=== PATIENT | female | born 1980 | race Caucasian/White ===

== ENCOUNTER 2017-11-16 20:08 | Inpatient (IN) | payer OTHER ==
[2017-11-16 20:31] VITALS: BMI 18.8
[2017-11-16] MEDS ORDERED: ONDANSETRON 4 MG/2 ML VIAL IVPUSH ONE (20:38)
[2017-11-16] MEDS ORDERED: SODIUM CHLORIDE 1,000 ML IV ONE (20:38)
--- NOTE | 2017-11-16 20:43 | PDOC ---
History of Present Illness - General Chief Complaint: Nausea/Vomiting Stated Complaint: NAUSEA Time Seen by Provider: 11/16/17 20:25 History Source: Patient Exam Limitations: No Limitations - History of Present Illness Travel History: No Initial Comments: 11/16/17 20:39 37y F no pmhx presents with complaint of abdominal pain. pt notes she was well until yesterday when she started to have episodes of vomting and intermittent abdominal pain. Pt notes her vomiting is clear/yellow, pain was originally releived with vomiting, but vomiting hasnt subsided and pt unable to tolerate any oral intake. she nots she has not had a BM in to days and hasnt passed any gas. no history of similar sypmtms in the past. no fever/chills, diarrhea, dysuria, nor history of abd surgery. pt had an IUD place a few months ago. LMP about 1 month ago. PMD in the ada Past History - Past Medical History Allergies/Adverse Reactions: Allergies Allergy/AdvReac Type Severity Reaction Status Date / Time No Known Allergies Allergy Verified 11/16/17 21:41 Home Medications: Ambulatory Orders NK [No Known Home Medication] 11/16/17 - Suicide/Smoking/Psychosocial Hx Smoking History: Never smoked Have you smoked in the past 12 months: No Information on smoking cessation initiated: No Hx Alcohol Use: No Drug/Substance Use Hx: No Review of Systems - Review of Systems Able to Perform ROS?: Yes Comments:: 11/16/17 20:41 Constitutional - no reported Fever, Chills, HEENT: no reported vision changes, sore throat Respiratory: no reported cough, sob, hemoptysis Cardiac: no reported chest pain, palpitations, light headedness, leg swelling Abd/GI: + abd pain, nausea, vomiting, obstipation no reported blood per rectum , melena, diarrhea : no reported dysuria, frequency, discharge Musculskelatal - no reported back pain, joint swelling skin - no reported bruising, erythema, rash neurological: no reported headache, numbness, focal weakness, tingling, ataxia, hematologic: no reported easy bruising, easy bleeding *Physical Exam - Vital Signs Last Vital Signs Temp Pulse Resp BP Pulse Ox 97.8 F 81 16 130/86 99 11/16/17 20:15 11/16/17 20:15 11/16/17 20:15 11/16/17 20:15 11/16/17 20:15 - Physical Exam Comments: 11/16/17 20:42 GENERAL: The patient is awake, alert, and fully oriented, Nontoxic - in no acute distress. HEAD: Normocephalic, atraumatic. EYES: extraocular movements intact, sclera anicteric, conjunctiva clear. ENT: Normal voice, Moist mucous membranes. NECK: Normal range of motion, supple LUNGS: Breath sounds equal, clear to auscultation bilaterally. No wheezes, no rhonchi, no rales. HEART: Regular rate and rhythm, normal S1 and S2 without murmur, rub or gallop. ABDOMEN: Soft, slightly distended, hyperactive bowel sounds in all 4 quadrants, moderately diffuse tenderness, no cva tendreness, no rebound/guarding EXTREMITIES: Normal range of motion, no edema. No clubbing or cyanosis. No cords, erythema, or tenderness. NEUROLOGICAL: No facial assymetry, Normal speech, PSYCH: Normal mood, normal affect. SKIN: Warm, Dry, normal turgor, ED Treatment Course - LABORATORY CBC & Chemistry Diagram: 11/16/17 22:15 11/16/17 22:15 Medical Decision Making - Medical Decision Making 11/16/17 20:43 suspect gastritis/enteritis will obtain blood work, lipse will treat sypmtmoatically with fluids, zofran, pepcid will obtain flat and upright to r/o obstruction 11/16/17 23:46 pts abd cutter tender ntoed for leukocytosis and left shift will obtain CT abdomen 11/17/17 01:[address] of the abdomen noted for complex peritoneal fluid possibly bloody ascites, also consistent with a small bowel obstruction with a focal transition point in the small bowel in the mid epigastric region pt feels mild pain in her abdomen but denies any vomiting since arrival Consult placed to Dr. Rhodes, awaiting callback 11/17/17 02:11 11/17/17 02:45 case marjorie rhodes requests admission under hospitalists service, garry see the pt 11/17/17 02:51 case marjorie miller agree with admission in med surg under dr. knowles service stable for med surg Case discussed in detail with admitting physician including history, physical exam and ancillary studies. Admitting physician has assumed care for the patient, will follow all pending diagnostics and will complete the evaluation and treatment. dr. esparza coming into evaluate the pt now *DC/Admit/Observation/Transfer Diagnosis at time of Disposition: Small bowel obstruction Peritoneal fluid Qualifiers: Ascites type: other type Qualified Code(s): R18.8 - Other ascites - Discharge Dispostion Condition at time of disposition: Guarded Decision to Admit order: Yes - Referrals - Patient Instructions - Post Discharge Activity
[2017-11-16] MEDS ORDERED: ONDANSETRON 4 MG/2 ML VIAL ONE (21:54)
[2017-11-16] MEDS ORDERED: morphine CARPU-JECT 2 MG/1 ML DISP.SYRIN IVPUSH ONE (22:22)
[2017-11-16 22:27] LABS: BASO % 0.6 % (0-2.0); EOS % 0.7 % (0-4.5); HEMATOCRIT 38.6 % (32.4-45.2); HEMOGLOBIN 12.8 GM/dL (10.7-15.3); LYMPH % 6.6 % (8-40); MCH 27.6 pg (25.7-33.7); MCHC 33.1 g/dl (32.0-36.0); MEAN CELL VOLUME 83.5 fl (80-96); MEAN PLT VOLUME 8.5 fl (7.5-11.1); MONO % 3.3 % (3.8-10.2); NEUT % 88.8 % (42.8-82.8); PLATELET COUNT 381 K/MM3 (134-434); RBC 4.62 M/mm3 (3.60-5.2); RDW 15.5 % (11.6-15.6); WHITE BLOOD COUNT 15.6 K/mm3 (4.0-10.0)
[2017-11-16] MEDS ORDERED: MORPHINE SULFATE 2 MG/ML VIAL ONE (22:30)
[2017-11-16 22:42] LABS: URINE APPEARANCE CLEAR; URINE BILIRUBIN NEGATIVE (<2.0 mg/dL); URINE COLOR AMBER; URINE GLUCOSE (UA) NEGATIVE (NEGATIVE); URINE KETONE TRACE (NEGATIVE); URINE LEUK ESTERASE TRACE (NEGATIVE); URINE NITRITE NEGATIVE (NEGATIVE); URINE PROTEIN 2+ (NEGATIVE)
[2017-11-16 22:47] LABS: EPI CELLS RARE /HPF (FEW); URINE BACTERIA RARE /hpf (NONE SEEN); URINE MUCUS MANY
[2017-11-16 22:54] LABS: ANION GAP 7 (8-16); BILIRUBIN,TOTAL 0.6 mg/dL (0.2-1.0); BLOOD UREA NITROGEN 21 mg/dL (7-18); CALCIUM 8.8 mg/dL (8.5-10.1); CHLORIDE 101 mmol/L (98-107); CO2 25 mmol/L (21-32); CREATININE 0.9 mg/dL (0.55-1.02); GLUCOSE,RANDOM 103 mg/dL (74-106); LIPASE 66 U/L (73-393); POTASSIUM 4.6 mmol/L (3.5-5.1); SGOT/AST 13 U/L (15-37); SGPT/ALT 15 U/L (12-78); SODIUM 133 mmol/L (136-145); TOT PROT 10.3 g/dl (6.4-8.2)
[2017-11-16 22:55] LABS: ALK PHOS 71 U/L (45-117)
[2017-11-17] MEDS ORDERED: morphine CARPU-JECT 2 MG/1 ML DISP.SYRIN IVPUSH ONE ×2 (00:49→02:12)
[2017-11-17] MEDS ORDERED: MORPHINE SULFATE 2 MG/ML VIAL ONE ×2 (00:55→02:51)
[2017-11-17] MEDS ORDERED: SODIUM CHLORIDE 1,000 ML IV ONE (02:49)
--- NOTE | 2017-11-17 02:58 | CONSULT ---
Consult Consult Specialty:: general surgery Reason for Consultation:: sbo - History of Present Illness Chief Complaint: abdominal pain History of Present Illness: 37yo no significant PMH BIBEMS with complaints of severe abdominal pain that started 3 days ago. She initially thought that he menstruation was starting ( LMP ~1 month ago) but the pain gradually became worse and was focal to her epigastrium. She rates the pain 10/10 at times and its intermittent. Associated with the pain is abdominal distension and vomiting in the last 2 days. she started to have episodes of vomting initially some of her meals an more recently just bitter yellow emesis. She reports also not having passed gas or stool in 3 days. no previous endoscopy, cleansing colonic 3 years ago. IUD placed 3 months ago. she denies fever/chills, diarrhea, dysuria, no history of abdominal or pelvic surgery. CT scan shows SBO with transition in LUQ mid abdomen and complex ascites in the pelvis and an adnexal cyst. We were asked to assess. - History Source History Provided By: Patient, Medical Record Limitations to Obtaining History: No Limitations - Past Medical History Reproductive: Yes: Other (IUD ) - Alcohol/Substance Use Hx Alcohol Use: No - Smoking History Smoking history: Current every day smoker Have you smoked in the past 12 months: No Aproximately how many cigarettes per day: 10 - Social History ADL: Independent Place of : [facility] History of Recent Travel: No Home Medications - Allergies Allergies/Adverse Reactions: Allergies Allergy/AdvReac Type Severity Reaction Status Date / Time No Known Allergies Allergy Verified 11/16/17 21:41 - Home Medications Home Medications: Ambulatory Orders NK [No Known Home Medication] 11/16/17 Review of Systems - Review of Systems Constitutional: reports: Chills. denies: Fever Eyes: denies: Blurred Vision, Recent Change in Vision HENT: denies: Difficult Swallowing, Throat Pain Neck: denies: Stiffness, Tenderness Cardiovascular: denies: Chest Pain, Palpitations Respiratory: denies: Cough, SOB Gastrointestinal: reports: Abdominal Pain, Bloating, Nausea, Vomiting Genitourinary: denies: Discharge, Dysuria, Flank Pain Breasts: reports: No Symptoms Reported. denies: Pain Musculoskeletal: denies: Muscle Pain, Muscle Weakness Integumentary: denies: Erythema, Lesions, Rash Neurological: denies: Seizure, Syncope Hematology/Lymphatic: denies: Easily Bruised, Excessive Bleeding Psychiatric: reports: Anxiety. denies: Depression Physical Exam Vital Signs: Vital Signs Temperature 97.8 F 11/16/17 20:15 Pulse Rate 81 11/16/17 20:15 Respiratory Rate 16 11/16/17 20:15 Blood Pressure 130/86 11/16/17 20:15 O2 Sat by Pulse Oximetry (%) 99 11/16/17 20:15 Vital Signs Period Temp Pulse Resp BP Sys/Gutiérrez Pulse Ox Last 24 Hr 97.8 F-98.2 F 81-81 16-16 130-131/62-86 97-99 Constitutional: Yes: Well Nourished, No Distress, Calm Eyes: Yes: Conjunctiva Clear, EOM Intact HENT: Yes: Atraumatic, Normocephalic Neck: Yes: Supple, Trachea Midline Cardiovascular: Yes: Regular Rate and Rhythm, S1, S2 Respiratory: Yes: Regular, CTA Bilaterally Gastrointestinal: Yes: Normal Bowel Sounds, Soft, Distention, Hernia (small reducible umbilical hernia), Tenderness, Tenderness, Epigastrium. No: Hepatomegaly, Splenomegaly ...Rectal Exam: Yes: Deferred Renal/: No: CVA Tenderness - Left, CVA Tenderness - Right Musculoskeletal: No: Muscle Pain, Muscle Weakness Extremities: No: Cool, Cyanosis Edema: Yes Integumentary: No: Jaundice, Rash Neurological: Yes: Alert, Oriented Psychiatric: Yes: Alert, Oriented Labs: CBC, BMP 11/16/17 22:15 11/16/17 22:15 Imaging - Results X-ray: Pending Cat Scan: Report Reviewed, Image Reviewed Problem List - Problems (1) Small bowel obstruction Assessment/Plan: 37yo female no significant PMH with abdominal pain, SBO with transition point on CTscan. No previous surgery. Plan to review scan with in-house radiologist. 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 Repeat labs Abdominal xray GI and DVT prophylaxsis smoking cessation counseling Discussion regarding possible OR for exploration Thank you for the opportunity to participate in the care of this patient. Code(s): K56.609 - UNSP INTESTNL OBST, UNSP TO PARTIAL VERSUS COMPLETE OBST (2) Abdominal pain in female Code(s): R10.9 - UNSPECIFIED ABDOMINAL PAIN (3) IUD (intrauterine device) in place Code(s): Z97.5 - PRESENCE OF (INTRAUTERINE) CONTRACEPTIVE DEVICE (4) Vomiting Code(s): R11.10 - VOMITING, UNSPECIFIED Qualifiers: Vomiting type: bilious vomiting Nausea presence: with nausea Qualified Code(s): R11.14 - Bilious vomiting (5) Peritoneal fluid Code(s): R18.8 - OTHER ASCITES Qualifiers: Ascites type: other type Qualified Code(s): R18.8 - Other ascites
--- NOTE | 2017-11-17 03:27 | PN ---
Teaching Attending Note Name of Resident: Danish Wang ATTENDING PHYSICIAN STATEMENT I saw and evaluated the patient. I reviewed the resident's note and discussed the case with the resident. I agree with the resident's findings and plan as documented. SUBJECTIVE: Patient is a 37 year old woman with no significant PMH presenting with complaint of abdominal pain. She was well until yesterday when she started to have episodes of vomiting and intermittent abdominal pain. Her vomitus is clear/ yellow, and pain was originally relieved with vomiting, but vomiting hasnt subsided and she is unable to tolerate any oral intake. She has not had a BM in two days and hasnt passed any gas. No vomiting since arriving in the ER. She had an IUD placed a few months ago and her LMP is about 1 month ago. She is anxious about missing a trip to [facility] on December 01, 2017 and smokes about 1/2 a pack of cigarettes daily. OBJECTIVE: Alert and in pain Vital Signs Period Temp Pulse Resp BP Sys/Gutiérrez Pulse Ox Last 24 Hr 97.8 F-98.2 F 81-81 16-16 130-131/62-86 97-99 HEENT: No Jaundice, eye redness or discharge, PERRLA, EOMI. Normocephalic, atraumatic. External ears are normal and hearing is grossly intact. No nasal discharge. Neck: Supple, nontender. No palpable adenopathy or thyromegaly. No JVD Chest: Good effort. Clear to auscultation and percussion. Heart: Regular. No S3, rub or murmur Abdomen: Not distended, soft, generalized tendernes with diminished bowel sounds ; no HSM. No rebound or guarding. Ext: Peripheral pulses intact. No leg edema. Skin: Warm and dry. No petechiae, rash or ecchymosis. Neuro: Alert. Oriented x3. CN 2-12 grossly intact. Sensation grossly intact in all four extremities and DTR are symmetric. Current Medications Generic Name Dose Route Start Last Admin Trade Name Freq PRN Reason Stop Dose Admin Sodium Chloride 1,000 mls @ 100 mls/hr 11/17/17 04:15 Normal Saline - IV ASDIR ZOEY Morphine Sulfate 2 mg 11/17/17 04:10 Morphine Sulfate IVPUSH Q4H PRN PAIN LEVEL 6-10 Nicotine 14 mg 11/17/17 04:00 Nicoderm Patch - TD DAILY ZOEY Ondansetron HCl 4 mg 11/17/17 04:11 Zofran Injection IVPUSH Q6H PRN NAUSEA Home Medications Medication Instructions Recorded NK [No Known Home Medication] 11/16/17 Abnormal Lab Results 11/16/17 11/16/17 11/16/17 22:15 22:15 22:15 WBC 15.6 H Neutrophils % 88.8 H Lymphocytes % 6.6 L Monocytes % 3.3 L Sodium 133 L Anion Gap 7 L BUN 21 H AST 13 L Total Protein 10.3 H Lipase 66 L Urine Protein 2+ H Urine Ketones Trace H Urine Urobilinogen 2.0 H ASSESSMENT AND PLAN: 1. Small bowel obstruction - Confirmed by CT scan. Surgery evaluation is pending , but imminent. Additional finding of bloody ascitic fluid is concerning - there is no report of free air to suggest bowel perforation. Will await final report of CT before deciding on next course of action for this finding. She has leukocytosis which may be stress induced. No other evidence of infection, thus no need for antibiotics at this time. Keep her NPO, pain control with IV morphine and IV NS at 125 ml/hour as well as baseline EKG. 2. Hyperglobulinemia and proteinuria - Significance is unclear, but will get HIV test. 3. DVT prophylaxis - SCD 4. Tobacco use - Will provide her all the necessary assistance to facilitate smoking cessation. Offer nicotine patch. 5. Mild hyponatremia - Likely due to appropriate as well as inappropriate ADH secretion associated with nausea and vomiting. Getting zofran and IV NS. 6. Advance directives - Full code
--- NOTE | 2017-11-17 03:30 | HP ---
CHIEF COMPLAINT: abd pain and vomiting PCP: none HISTORY OF PRESENT ILLNESS: 37 y/o F w/ no PMH presents to the ER with nausea, vomiting, epigastric pain x 2 days. Pt states pain at its worst was 10/10 with no radiation. Vomiting was nonbloody and she vomited numerous times. Last time she vomited was prior to going in ambulance enroute to ER. She also states her abd has become distended over this time. She has not passed gas or had a BM in 2 days as well. This is the first time she's had these symptoms. She denies any fevers, chills, recent travel, trauma to abdomen, history of abdominal surgery, CP, SOB, cough, sick contacts, dysuria, LE edema. Pt had an elective at age 20 via d&c. ER course was notable for: (1) morphine, CT abd (2) (3) Recent Travel: denies PAST MEDICAL HISTORY: none PAST SURGICAL HISTORY: none Social History: Smokin/2 ppd Alcohol: social Drugs: denies Family History: n-c Allergies No Known Allergies Allergy (Verified 11/16/17 21:41) HOME MEDICATIONS: Home Medications Medication Instructions Recorded NK [No Known Home Medication] 11/16/17 REVIEW OF SYSTEMS CONSTITUTIONAL: Absent: fever, chills CARDIOVASCULAR: Absent: chest pain, peripheral edema RESPIRATORY: Absent: cough, shortness of breath GASTROINTESTINAL: +abd pain, distension, nausea, vomiting, no BMs or gas x 2 days GENITOURINARY: Absent: dysuria, frequency NEUROLOGIC: Absent: headache PHYSICAL EXAMINATION Vital Signs - 24 hr 11/16/17 20:15 Temperature 97.8 F Pulse Rate 81 Respiratory 16 Rate Blood Pressure 130/86 O2 Sat by Pulse 99 Oximetry (%) GENERAL: Awake, alert, and fully oriented, in no acute distress. HEAD: Normal with no signs of trauma. EYES: extraocular movements intact, sclera anicteric, conjunctiva clear. EARS, NOSE, THROAT: Ears normal, nares patent NECK: Normal range of motion, supple LUNGS: Breath sounds equal, clear to auscultation bilaterally. HEART: Regular rate and rhythm, normal S1 and S2 without murmur, rub or gallop. ABDOMEN: Abd tender in epigastric region. Distended abdomen but soft. Hyperactive BS. LOWER EXTREMITIES:warm, well-perfused. No peripheral edema. NEUROLOGICAL: Cranial nerves II-XII grossly intact. Normal speech. Gait not observed. PSYCHIATRIC: Cooperative. Good eye contact. Appropriate mood and affect. SKIN: Warm, dry Laboratory Results - last 24 hr 11/16/17 11/16/17 11/16/17 22:15 22:15 22:15 WBC 15.6 H RBC 4.62 Hgb 12.8 Hct 38.6 MCV 83.5 MCH 27.6 MCHC 33.1 RDW 15.5 Plt Count 381 MPV 8.5 Absolute Neuts (auto) 13.8 Neutrophils % 88.8 H Lymphocytes % 6.6 L Monocytes % 3.3 L Eosinophils % 0.7 Basophils % 0.6 Nucleated RBC % 0 Sodium 133 L Potassium 4.6 Chloride 101 Carbon Dioxide 25 Anion Gap 7 L BUN 21 H Creatinine 0.9 Creat Clearance w eGFR > 60 Random Glucose 103 Calcium 8.8 Total Bilirubin 0.6 AST 13 L ALT 15 Alkaline Phosphatase 71 Total Protein 10.3 H Albumin 4.0 Lipase 66 L Urine Color Urine Appearance Urine pH Ur Specific Garfield Urine Protein Urine Glucose (UA) Urine Ketones Urine Blood Urine Nitrite Urine Bilirubin Urine Urobilinogen Ur Leukocyte Esterase Urine WBC (Auto) Urine RBC (Auto) Ur Epithelial Cells Urine Bacteria Urine Mucus Urine HCG, Qual Negative 11/16/17 22:15 WBC RBC Hgb Hct MCV MCH MCHC RDW Plt Count MPV Absolute Neuts (auto) Neutrophils % Lymphocytes % Monocytes % Eosinophils % Basophils % Nucleated RBC % Sodium Potassium Chloride Carbon Dioxide Anion Gap BUN Creatinine Creat Clearance w eGFR Random Glucose Calcium Total Bilirubin AST ALT Alkaline Phosphatase Total Protein Albumin Lipase Urine Color Daya Urine Appearance Clear Urine pH 5.0 Ur Specific Garfield 1.033 Urine Protein 2+ H Urine Glucose (UA) Negative Urine Ketones Trace H Urine Blood Negative Urine Nitrite Negative Urine Bilirubin Negative Urine Urobilinogen 2.0 H Ur Leukocyte Esterase Trace Urine WBC (Auto) 5 Urine RBC (Auto) 4 Ur Epithelial Cells Rare Urine Bacteria Rare Urine Mucus Many Urine HCG, Qual Imaging: CT abd/pelvis: PRELIM READ: SBO. Complex peritoneal fluid possibly bloody ascites. -Pending official read ASSESSMENT/PLAN: 37 y/o F w/ no PMH presents to the ER with nausea, vomiting, epigastric pain x 2 days. Admitted for SBO. -SBO -prelim CT read shows possibly bloody ascites along with SBO -Surgery consult - Dr. Rhodes -NS @ 100 ml/hr -NPO -pain control w/morphine 2mg q4h prn pain 6-10 -zofran 4 mg iv q6h prn for nausea -Leukocytosis -likely reactive to vomiting and SBO -monitor -Nicotine dependance -Nicotine Patch 14 mg qd -DVT ppx -SCDs, EAM -FEN -NS @ 100ml/hr -monitor electrolytes -NPO -Dispo: Admit to m/s Visit type - Emergency Visit Emergency Visit: Yes ED Registration Date: 11/17/17 Care time: The patient presented to the Emergency Department on the above date and was hospitalized for further evaluation of their emergent condition. - New Patient This patient is new to me today: Yes Date on this admission: 11/17/17 - Critical Care Critical Care patient: No Hospitalist Screening - Colonoscopy Questionnaire Colonoscopy Questionnaire: Colonoscopy Questionnaire - Patient: 50 - 75 years old and never had a screening colonoscopy: Unknown History of colon or rectal polyps, or CA: Unknown History of IBD, Crohn's disease or UC: Unknown History of abdominal radiation therapy as a child: Unknown - Relative: 1 with colon or rectal CA, or polyps at age 60 or younger: Unknown Colon or rectal CA diagnosed at age 45 or younger: Unknown Multiple relatives with colon or rectal CA: Unknown - Outcome: Screening Result: Negative Screen
[2017-11-17] MEDS ORDERED: ONDANSETRON 4 MG/2 ML VIAL IVPUSH PRN ×3 (04:11→18:16)
[2017-11-17] MEDS ORDERED: SODIUM CHLORIDE 1,000 ML IV SCH (04:15)
[2017-11-17] MEDS: MORPHINE SULFATE 2 MG/ML VIAL IVPUSH PRN ×2 (04:47→12:30)
[2017-11-17] MEDS: NICOTINE 14 MG/24 HOURS TOPICAL PATCH TD SCH ×2 (04:48→09:27)
[2017-11-17] MEDS ORDERED: MORPHINE SULFATE 2 MG/ML VIAL IVPUSH ONE (07:51)
[2017-11-17 08:20] LABS: BASO % 0.3 % (0-2.0); EOS % 3.7 % (0-4.5); HEMATOCRIT 30.2 % (32.4-45.2); HEMOGLOBIN 10.1 GM/dL (10.7-15.3); LYMPH % 26.6 % (8-40); MCH 28.3 pg (25.7-33.7); MCHC 33.4 g/dl (32.0-36.0); MEAN CELL VOLUME 84.8 fl (80-96); MEAN PLT VOLUME 8.3 fl (7.5-11.1); NEUT % 59.4 % (42.8-82.8); PLATELET COUNT 250 K/MM3 (134-434); RBC 3.57 M/mm3 (3.60-5.2); RDW 15.2 % (11.6-15.6); WHITE BLOOD COUNT 5.9 K/mm3 (4.0-10.0)
[2017-11-17 08:37] LABS: INR 1.21 (0.82-1.09); PROTHROMBIN TIME (PATIENT) 13.7 SEC (9.7-13.0)
[2017-11-17 08:49] LABS: CO2 24 mmol/L (21-32); SGOT/AST 13 U/L (15-37); SGPT/ALT 12 U/L (12-78)
[2017-11-17 08:59] LABS: ALK PHOS 49 U/L (45-117); ANION GAP 7 (8-16); BILIRUBIN,TOTAL 0.6 mg/dL (0.2-1.0); BLOOD UREA NITROGEN 15 mg/dL (7-18); CALCIUM 7.5 mg/dL (8.5-10.1); CHLORIDE 106 mmol/L (98-107); CREATININE 0.6 mg/dL (0.55-1.02); GLUCOSE,RANDOM 74 mg/dL (74-106); MAGNESIUM 2.1 mg/dL (1.8-2.4); POTASSIUM 4.5 mmol/L (3.5-5.1); SODIUM 137 mmol/L (136-145); TOT PROT 7.5 g/dl (6.4-8.2)
[2017-11-17] MEDS ORDERED: NICOTINE 14 MG/24 HOURS TOPICAL PATCH TD SCH (10:00)
[2017-11-17] MEDS ORDERED: PANTOPRAZOLE SODIUM 40 MG VIAL IVPUSH SCH (10:00)
[2017-11-17] MEDS ORDERED: TETRACAINE/BENZOCAINE/BUTAMBEN 20 GM SPR TP ONE (10:30)
[2017-11-17] MEDS ORDERED: LORazepam 2 MG/ML SDV VIAL IVPUSH PRN ×3 (10:40→18:16)
[2017-11-17 11:04] LABS: PLATELET ESTIMATE ADEQUATE
--- NOTE | 2017-11-17 12:46 | CON.OBG ---
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 she did not take any meds for pain ,. she started vomiting , food, followed by bile , green , yellowish color vomit . forceful vomit , pain . h/o constipation for past 3 days . she always has regular BM not later than 1& half day. she also feels her abdomen is distended . she is unable to tolerate po intake , including water she never has experienced such pain in the past . 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 h/o mirena ( harmonal iud for 5 years) inserted . f/u check normal previously contraception used Nuva Ring for 2 yrs , followed by OC pills , was made to discontinue due to her age, smoking habit & break through bleeding Sexual history : currently one sexual partner, In past total 10 partners STD declines , regular check up for std & hiv she does always neg no h/o PID. h/o dysmenorrhea but no meds reqd OB h/o 1 ind ab 2001 , mid trimester ab ( 2 day procedure ) - History Source History Provided By: Patient, Medical Record Limitations to Obtaining History: No Limitations - Past Medical History CLINIC ASSISTANT: No: Migraine, Seizure Cardio/Vascular: No: HTN, Murmur Pulmonary: No: Asthma, COPD Gastrointestinal: Yes: Constipation (currently for 3 days ), Other (vomiting currently for 2 days ) Hepatobiliary: Yes: Other (declines liver disease ) Renal/: Yes: Other (no urine symptoms of burning or frequency or dysuria ). No: UTI Reproductive: Yes: Other (Pt attends [employer] office regularly last pap 06/2017 normal as per patient . h/o Abn pap in past & colposcopy is done she follows pap q 6 months ). No: Fibroids, PID ...LMP: 10/19/17 ( regular period 28-30 x 4-5 days bleeding regularly ) ...: No ...: 1 (h/o one mid trimester in 2001 ) ...Para: 0 Infectious Disease: No: STD's, Other (declines ) Psych: Yes: Other (declines ) Endocrine: No: Diabetes Mellitus, Hyperthyroidism, Hypothyroidism - Past Surgical History Past Surgical History: Yes: None - Alcohol/Substance Use Hx Alcohol Use: No History of Substance Use: reports: Cocaine (when she was teenager ), Marijuana ( three times a week ) - Smoking History Smoking history: Current every day smoker Have you smoked in the past 12 months: Yes Aproximately how many cigarettes per day: 10 (boyfriend states 1ppd ) - Social History ADL: Independent History of Recent Travel: No Home Medications - Allergies Allergies/Adverse Reactions: Allergies Allergy/AdvReac Type Severity Reaction Status Date / Time No Known Allergies Allergy Verified 11/16/17 21:41 - Home Medications Home Medications: Ambulatory Orders NK [No Known Home Medication] 11/16/17 Physical Exam-[employer] Vital Signs: Vital Signs Temperature 98.5 F 11/17/17 04:30 Pulse Rate 72 11/17/17 04:30 Respiratory Rate 16 11/17/17 04:30 Blood Pressure 112/54 11/17/17 04:30 O2 Sat by Pulse Oximetry (%) 97 11/17/17 04:30 Selected Entries 11/16/17 20:15 Weight 120 lb Constitutional: Yes: Well Nourished, Moderate Distress Eyes: Yes: WNL HENT: Yes: WNL Neck: Yes: WNL Cardiovascular: Yes: Other (not examined) Respiratory: Yes: Other (not examined) Gastrointestinal: Yes: Soft, Distention, Tenderness, Vomiting (supf tenderness all over abd, more pronounced in loer abdomen). No: Palpable Mass ...Rectal Exam: Yes: Deferred Renal/: No: CVA Tenderness - Left, CVA Tenderness - Right, Vaginal Bleeding, Vaginal Discharge External Genitalia: Yes: Normal Internal Exam Deferred: Yes Vaginal Exam: Yes: Normal Cervix: Yes: Normal, Other (iud string visualised). No: Cerv Motion Tenderness Uterus: Yes: Normal, Freely Moveable, Anteverted, Firm Adnexa: Normal: Bilateral Breast(s): Yes: WNL. No: Mass Musculoskeletal: Yes: WNL Extremities: No: Calf Tenderness Edema: No Integumentary: Yes: WNL Neurological: Yes: WNL, Alert, Oriented ...Motor Strength: WNL Psychiatric: Yes: WNL, Alert, Oriented Labs: CBC, BMP 11/17/17 06:30 11/17/17 06:30 Laboratory Tests 11/16/17 11/16/17 11/16/17 22:15 22:15 22:15 WBC 15.6 H RBC 4.62 Hgb 12.8 Plt Count 381 Neutrophils % 88.8 H Lymphocytes % 6.6 L AST ALT C-Reactive Protein Albumin Urine Protein 2+ H Urine Glucose (UA) Negative Urine Ketones Trace H Urine HCG, Qual Negative 11/17/17 06:30 WBC RBC Hgb Plt Count Neutrophils % Lymphocytes % AST 13 L ALT 12 C-Reactive Protein 3.6 H Albumin 3.0 L Urine Protein Urine Glucose (UA) Urine Ketones Urine HCG, Qual Problem List - Problems (1) Abdominal pain in female Code(s): R10.9 - UNSPECIFIED ABDOMINAL PAIN (2) IUD (intrauterine device) in place Code(s): Z97.5 - PRESENCE OF (INTRAUTERINE) CONTRACEPTIVE DEVICE (3) Small bowel obstruction Code(s): K56.609 - UNSP INTESTNL OBST, UNSP TO PARTIAL VERSUS COMPLETE OBST (4) Substance abuse Code(s): F19.10 - OTHER PSYCHOACTIVE SUBSTANCE ABUSE, UNCOMPLICATED Assessment/Plan 37 yrs , ac onset of abd pain & vomiting ,premenstural ct scan suggestive of small bowel obstruction , colllection of comlex fluid on pevis , cul de sac iud in utero in position possible premenstural hemorrhagic cyst rupture can not be ruled out , since complex collection of fluid in culde sac , but unlikely to give bowel obstruction IUD presence , possiblity of TOA but unlikely due to normal WBC count without antibiotics in 24 hrs , pt is afebrile intial high WBC count may be due to Dehydration . pelvic sono & & ct scan unable to determine adnexal pathology possiblity of enndometriosis can be kept in mind since she has h/o dysmenorrhea , complex nature of fluid in cul de sac h/o substance abuse & smoking urine g/c chlamydia ordered management as per Dr Rhodes
--- NOTE | 2017-11-17 13:33 | PN ---
Progress Note, Physician Chief Complaint: sbo History of Present Illness: 37yo no significant PMH BIBEMS with complaints of severe abdominal pain that started 3 days ago. She initially thought that he menstruation was starting ( LMP ~1 month ago) but the pain gradually became worse and was focal to her epigastrium. She rates the pain 10/10 at times and its intermittent. Associated with the pain is abdominal distension and vomiting in the last 2 days. she started to have episodes of vomting initially some of her meals an more recently just bitter yellow emesis. She reports also not having passed gas or stool in 3 days. no previous endoscopy, cleansing colonic 3 years ago. IUD placed 3 months ago. she denies fever/chills, diarrhea, dysuria, no history of abdominal or pelvic surgery. CT scan shows SBO with transition in LUQ mid abdomen and complex ascites in the pelvis and an adnexal cyst. We were asked to assess. - Current Medication List Current Medications: Active Medications Sodium Chloride (Normal Saline -) 1,000 mls @ 100 mls/hr IV ASDIR [facility] Last Admin: 11/17/17 04:48 Dose: 100 mls/hr Lorazepam (Ativan Injection -) 1 mg IVPUSH TID PRN PRN Reason: ANXIETY Morphine Sulfate (Morphine Sulfate) 2 mg IVPUSH Q4H PRN PRN Reason: PAIN LEVEL 6-10 Last Admin: 11/17/17 12:30 Dose: 2 mg Nicotine (Nicoderm Patch -) 14 mg TD DAILY [facility] Last Admin: 11/17/17 09:27 Dose: Not Given Ondansetron HCl (Zofran Injection) 4 mg IVPUSH Q6H PRN PRN Reason: NAUSEA Pantoprazole Sodium (Protonix Iv) 40 mg IVPUSH DAILY [facility] Last Admin: 11/17/17 09:34 Dose: 40 mg - Objective Vital Signs: Vital Signs Temperature 98.5 F 11/17/17 04:30 Pulse Rate 72 11/17/17 04:30 Respiratory Rate 16 11/17/17 04:30 Blood Pressure 112/54 11/17/17 04:30 O2 Sat by Pulse Oximetry (%) 97 11/17/17 04:30 Constitutional: Yes: Well Nourished, Anxious, Mild Distress Eyes: Yes: Conjunctiva Clear, EOM Intact HENT: Yes: Atraumatic, Normocephalic Neck: Yes: Supple, Trachea Midline Cardiovascular: Yes: Regular Rate and Rhythm, S1, S2 Respiratory: Yes: Regular, CTA Bilaterally Gastrointestinal: Yes: Normal Bowel Sounds, Soft, Distention, Tenderness, Epigastrium, Other (NGT) Genitourinary: Yes: CVA Tenderness - Left, CVA Tenderness - Right Extremities: No: Cool, Cyanosis Edema: No Peripheral Pulses WNL: Yes Peripheral Pulses: Left Radial: 2+, Right Radial: 2+, Left Doralis Pedis: 2+, Right Dorsalis Pedis: 2+ Neurological: Yes: Alert, Oriented Psychiatric: Yes: Alert, Oriented Labs: CBC, BMP 11/17/17 06:30 11/17/17 06:30 INR, PTT INR 1.21 (0.82-1.09) H 11/17/17 07:15 CBC,CMP WBC 5.9 K/mm3 (4.0-10.0) 11/17/17 06:30 RBC 3.57 M/mm3 (3.60-5.2) L 11/17/17 06:30 Hgb 10.1 GM/dL (10.7-15.3) L 11/17/17 06:30 Hct 30.2 % (32.4-45.2) L D 11/17/17 06:30 MCV 84.8 fl (80-96) 11/17/17 06:30 MCH 28.3 pg (25.7-33.7) 11/17/17 06:30 MCHC 33.4 g/dl (32.0-36.0) 11/17/17 06:30 RDW 15.2 % (11.6-15.6) 11/17/17 06:30 Plt Count 250 K/MM3 (134-434) D 11/17/17 06:30 MPV 8.3 fl (7.5-11.1) 11/17/17 06:30 Absolute Neuts (auto) 3.5 # 11/17/17 06:30 Neutrophils % 59.4 % (42.8-82.8) D 11/17/17 06:30 Lymphocytes % 26.6 % (8-40) D 11/17/17 06:30 Monocytes % 10.0 % (3.8-10.2) D 11/17/17 06:30 Eosinophils % 3.7 % (0-4.5) D 11/17/17 06:30 Basophils % 0.3 % (0-2.0) 11/17/17 06:30 Nucleated RBC % 0 % (0-0) 11/17/17 06:30 Platelet Estimate Adequate 11/17/17 06:30 Platelet Comment No clotting detected 11/17/17 06:30 Sodium 137 mmol/L (136-145) 11/17/17 06:30 Potassium 4.5 mmol/L (3.5-5.1) 11/17/17 06:30 Chloride 106 mmol/L (98-107) 11/17/17 06:30 Carbon Dioxide 24 mmol/L (21-32) 11/17/17 06:30 Anion Gap 7 (8-16) L 11/17/17 06:30 BUN 15 mg/dL (7-18) 11/17/17 06:30 Creatinine 0.6 mg/dL (0.55-1.02) 11/17/17 06:30 Creat Clearance w eGFR > 60 (>60) 11/17/17 06:30 Random Glucose 74 mg/dL (74-106) 11/17/17 06:30 Lactic Acid 0.5 mmol/L (0.0-2.0) 11/17/17 07:15 Calcium 7.5 mg/dL (8.5-10.1) L 11/17/17 06:30 Magnesium 2.1 mg/dL (1.8-2.4) 11/17/17 06:30 Total Bilirubin 0.6 mg/dL (0.2-1.0) 11/17/17 06:30 AST 13 U/L (15-37) L 11/17/17 06:30 ALT 12 U/L (12-78) 11/17/17 06:30 Alkaline Phosphatase 49 U/L (45-117) D 11/17/17 06:30 C-Reactive Protein 3.6 MG/DL (0.00-0.3) H 11/17/17 06:30 Total Protein 7.5 g/dl (6.4-8.2) D 11/17/17 06:30 Albumin 3.0 g/dl (3.4-5.0) L 11/17/17 06:30 Lipase 66 U/L (73-393) L 11/16/17 22:15 - ....Imaging X-ray: Report Reviewed, Image Reviewed Cat Scan: Report Reviewed, Image Reviewed Ultrasound: Report Reviewed, Image Reviewed Problem List - Problems (1) Small bowel obstruction Assessment/Plan: 37yo female no significant PMH with abdominal pain, SBO with transition point on CTscan. No previous surgery. Unable to rectify possible adnexal pathology with SBO. Abdominal pain not improving with NGT decompression. Would recommend diagnostic laparoscopy, possible exploratory laparotomy, possible bowel resection possible ostomy. NPO and IVF hydration NGT decompression empiric IV antibiotics Repeat labs GI and DVT prophylaxsis smoking cessation counseling Discussed with patient risks, benefits and alternatives of the aformentioned procedure, including but not limited to bleeding, infection, injury to adjacent structures, leak or injury, intra-abdominal abscess, need for further procedures , ; alternatives include antibiotics, delayed or no surgery - risks of this include failure of nonoperative therapy, perforation, sepsis, recurrence, . Patient desires to proceed with operation - will take to OR for above. Informed consent signed for same. Code(s): K56.609 - UNSP INTESTNL OBST, UNSP TO PARTIAL VERSUS COMPLETE OBST (2) Abdominal pain in female Code(s): R10.9 - UNSPECIFIED ABDOMINAL PAIN (3) IUD (intrauterine device) in place Code(s): Z97.5 - PRESENCE OF (INTRAUTERINE) CONTRACEPTIVE DEVICE (4) Vomiting Code(s): R11.10 - VOMITING, UNSPECIFIED Qualifiers: Vomiting type: bilious vomiting Nausea presence: with nausea Qualified Code(s): R11.14 - Bilious vomiting (5) Peritoneal fluid Code(s): R18.8 - OTHER ASCITES Qualifiers: Ascites type: other type Qualified Code(s): R18.8 - Other ascites
--- NOTE | 2017-11-17 14:04 | HOSP ---
Subjective - Review of Symptoms Events since last encounter: Patient seen and examined, patient is c/o having pain. No fever or chills, no shortness of breath. Vital Signs Temperature 98.1 F 11/17/17 10:00 Pulse Rate 72 11/17/17 10:00 Respiratory Rate 20 11/17/17 10:00 Blood Pressure 104/70 11/17/17 10:00 O2 Sat by Pulse Oximetry (%) 98 11/17/17 09:00 GENERAL: Awake, alert, and fully oriented, in no acute distress. HEAD: Normal with no signs of trauma. EYES: extraocular movements intact, sclera anicteric, conjunctiva clear. EARS, NOSE, THROAT: Ears normal, moist mucus membrane NECK: Normal range of motion, supple LUNGS: Breath sounds equal, clear to auscultation bilaterally. HEART: Regular rate and rhythm, normal S1 and S2 without murmur, rub or gallop. ABDOMEN: Abd soft but distended, NT now, since has been getting pain medication .hyperactive BS. positive for NG tube. LOWER EXTREMITIES:warm, well-perfused. No peripheral edema. NEUROLOGICAL: Cranial nerves II-XII grossly intact. Normal speech. Gait is stable PSYCHIATRIC: Cooperative. Good eye contact. Appropriate mood and affect. SKIN: Warm, dry , MMM CBCD WBC 5.9 K/mm3 (4.0-10.0) 11/17/17 06:30 RBC 3.57 M/mm3 (3.60-5.2) L 11/17/17 06:30 Hgb 10.1 GM/dL (10.7-15.3) L 11/17/17 06:30 Hct 30.2 % (32.4-45.2) L D 11/17/17 06:30 MCV 84.8 fl (80-96) 11/17/17 06:30 MCHC 33.4 g/dl (32.0-36.0) 11/17/17 06:30 RDW 15.2 % (11.6-15.6) 11/17/17 06:30 Plt Count 250 K/MM3 (134-434) D 11/17/17 06:30 MPV 8.3 fl (7.5-11.1) 11/17/17 06:30 CMP Sodium 137 mmol/L (136-145) 11/17/17 06:30 Potassium 4.5 mmol/L (3.5-5.1) 11/17/17 06:30 Chloride 106 mmol/L (98-107) 11/17/17 06:30 Carbon Dioxide 24 mmol/L (21-32) 11/17/17 06:30 Anion Gap 7 (8-16) L 11/17/17 06:30 BUN 15 mg/dL (7-18) 11/17/17 06:30 Creatinine 0.6 mg/dL (0.55-1.02) 11/17/17 06:30 Creat Clearance w eGFR > 60 (>60) 11/17/17 06:30 Random Glucose 74 mg/dL (74-106) 11/17/17 06:30 Calcium 7.5 mg/dL (8.5-10.1) L 11/17/17 06:30 Total Bilirubin 0.6 mg/dL (0.2-1.0) 11/17/17 06:30 AST 13 U/L (15-37) L 11/17/17 06:30 ALT 12 U/L (12-78) 11/17/17 06:30 Alkaline Phosphatase 49 U/L (45-117) D 11/17/17 06:30 Total Protein 7.5 g/dl (6.4-8.2) D 11/17/17 06:30 Albumin 3.0 g/dl (3.4-5.0) L 11/17/17 06:30 Current Medications Generic Name Dose Route Start Last Admin Trade Name Freq PRN Reason Stop Dose Admin Sodium Chloride 1,000 mls @ 100 mls/hr 11/17/17 04:15 11/17/17 04:48 Normal Saline - IV 100 mls/hr ASDIR ZOEY Administration Lorazepam 1 mg 11/17/17 12:17 Ativan Injection - IVPUSH TID PRN ANXIETY Morphine Sulfate 2 mg 11/17/17 04:10 11/17/17 12:30 Morphine Sulfate IVPUSH 2 mg Q4H PRN Administration PAIN LEVEL 6-10 Nicotine 14 mg 11/17/17 04:00 11/17/17 09:27 Nicoderm Patch - TD Not Given DAILY ZOEY Ondansetron HCl 4 mg 11/17/17 04:11 Zofran Injection IVPUSH Q6H PRN NAUSEA Pantoprazole Sodium 40 mg 11/17/17 10:00 11/17/17 09:34 Protonix Iv IVPUSH 40 mg DAILY [facility]OEY Administration Home Medications Medication Instructions Recorded NK [No Known Home Medication] 11/16/17 A/P: Patient is a 37yo female with no significant PMHx presented to ED. c/o having severe abdominal pain requiring IV morphine, CT of abdomen/pelvis positive for SBO , patient has no previous surgery. # Acute abdominal pain with cannot r/o PID, pelvic US ordered, discussed with the surgeon, and the radiologist , patient will be going to laporoscopic procedure to ID the cause of the severe abdominal pain. NPO,IVF, NGT for decompression. CHILDCARE ADMINISTRATOR consult, # Hx of IUD placed around 3 months ago DVT PX: SCDs for now. Physical Examination Vital Signs: Vital Signs Temperature 98.1 F 11/17/17 10:00 Pulse Rate 72 11/17/17 10:00 Respiratory Rate 20 11/17/17 10:00 Blood Pressure 104/70 11/17/17 10:00 O2 Sat by Pulse Oximetry (%) 98 11/17/17 09:00 Labs: CBC, BMP 11/17/17 06:30 11/17/17 06:30
[2017-11-17 16:21] LABS: COCAINE, UR NEGATIVE ng/ml (CUTOFF=300); PHENCYCLIDINE,URINE NEGATIVE ng/ml (CUTOFF=25); URINE AMPHETAMINES NEGATIVE ng/ml (CUTOFF=500); URINE BARBITURATES NEGATIVE ng/ml (CUTOFF=200)
[2017-11-17 16:22] LABS: METHADONE, UR NEGATIVE ng/ml (CUTOFF=300); OPIATES, URI POSITIVE ng/ml (CUTOFF=300); URINE BENZODIAZEPINES POSITIVE ng/ml (CUTOFF=200)
[2017-11-17] MEDS ORDERED: CEFOXITIN SODIUM 2 GM IVPB ONE (16:26)
[2017-11-17] MEDS ORDERED: CEFOTAXIME SODIUM 1 GM VIAL (RESTRICTED TO ID) IVPB ONE (16:50)
[2017-11-17] MEDS ORDERED: BUPIVACAINE HCL/PF 0.5% (5MG/ML) 10 ML VIAL ONE (17:29)
[2017-11-17] MEDS ORDERED: BUPIVACAINE HCL/PF (5 MG/ML) 30 ML VIAL IJ ONE ×2 (17:32→17:48)
[2017-11-17] MEDS ORDERED: oxyCODONE HCL 5 MG TABLET PO PRN (18:02)
[2017-11-17] MEDS ORDERED: PROMETHAZINE HCL 25 MG/1 ML VIAL IVPUSH PRN ×2 (18:02→18:16)
--- NOTE | 2017-11-17 18:08 | OP ---
Operative Note - Note: Operative Date: 11/17/17 Pre-Operative Diagnosis: SBO and free fluid in the pelvis Operation: Diagnostic laparoscopy, abdominal washout Findings: cultures and cytology sent, 6 liters of sterile irrigation Implants: none Post-Operative Diagnosis: Other (Pelvic Inflammatory Disease) Surgeon: Parmjit Rhodes Director Diversity: Arturo Philippe Anesthesiologist/RIVET STICKER: Piyush Forte Anesthesia: General Specimens Removed: cytology, culture Estimated Blood Loss (mls): 5 Operative Report Dictated: Yes
[2017-11-17] MEDS ORDERED: LACTATED RINGERS SOLUTION 1,000 ML IV SCH (18:15)
--- NOTE | 2017-11-17 18:45 | PN ---
Progress Note (short form) - Note Progress Note: Intra op Residential Real Estate Appraiser consult Observation of pelvic findings I did not scrub but watched the findings while Dr Rhodes was operating serous fluid in the pelvis distended bowel loops around adnexa & posterior to uterus loculating free fluid .& adhesions around tubes & ovaries not edematous but uterine surface very congested no pat ariel mary syndrome noted . impression Ac PID Plan : Cefoxitin 2 gm ivpb q 6h Flagyl 500 mg q 8 h take consent from the patient for IUD removal Problem List - Problems (1) Abdominal pain in female Code(s): R10.9 - UNSPECIFIED ABDOMINAL PAIN (2) IUD (intrauterine device) in place Code(s): Z97.5 - PRESENCE OF (INTRAUTERINE) CONTRACEPTIVE DEVICE (3) Small bowel obstruction Code(s): K56.609 - UNSP INTESTNL OBST, UNSP TO PARTIAL VERSUS COMPLETE OBST (4) Substance abuse Code(s): F19.10 - OTHER PSYCHOACTIVE SUBSTANCE ABUSE, UNCOMPLICATED (5) Acute PID (pelvic inflammatory disease) Code(s): N73.0 - ACUTE PARAMETRITIS AND PELVIC CELLULITIS (6) Peritonitis Code(s): K65.9 - PERITONITIS, UNSPECIFIED
[2017-11-17] MEDS: HYDROmorphone *PCA* 10MG/50ML DISP.SYRIN PCA SCH ×2 (18:55→19:32)
[2017-11-17] MEDS: SODIUM CHLORIDE 1,000 ML IV SCH (19:45)
[2017-11-17] MEDS ORDERED: CEFOXITIN SODIUM 2 GM in DEXTROSE 5%-WATER - 100 ML IVPB SCH (21:00)
[2017-11-17] MEDS: CEFOXITIN SODIUM 2 GM in DEXTROSE 5%-WATER - 100 ML IVPB SCH (21:19)
[2017-11-17] MEDS: DOXYCYCLINE INJECTION 100 MG in DEXTROSE 5%-WATER - 100 ML IVPB SCH (21:42)
[2017-11-18] MEDS: HYDROmorphone *PCA* 10MG/50ML DISP.SYRIN PCA SCH ×3 (00:12→17:50)
[2017-11-18] MEDS: CEFOXITIN SODIUM 2 GM in DEXTROSE 5%-WATER - 100 ML IVPB SCH ×5 (03:11→21:07)
[2017-11-18 07:39] LABS: BASO % 0.2 % (0-2.0); EOS % 0.2 % (0-4.5); HEMATOCRIT 29.3 % (32.4-45.2); HEMOGLOBIN 9.7 GM/dL (10.7-15.3); LYMPH % 16.3 % (8-40); MCH 28.4 pg (25.7-33.7); MCHC 33.1 g/dl (32.0-36.0); MEAN CELL VOLUME 85.9 fl (80-96); MEAN PLT VOLUME 8.4 fl (7.5-11.1); MONO % 11.3 % (3.8-10.2); PLATELET COUNT 224 K/MM3 (134-434); RBC 3.41 M/mm3 (3.60-5.2); RDW 15.1 % (11.6-15.6); WHITE BLOOD COUNT 5.7 K/mm3 (4.0-10.0)
--- NOTE | 2017-11-18 08:16 | OP ---
DATE OF OPERATION: 11/17/2017 PREOPERATIVE DIAGNOSES: Small bowel obstruction, free fluid in the pelvis. POSTOPERATIVE DIAGNOSES: Pelvic inflammatory disease with associated ileus. PROCEDURE: Diagnostic laparoscopy with abdominal washout with 6 L of irrigation fluid. ATTENDING SURGEON: Parmjit Rhodes MD HARDWOOD SAWYER: Arturo Philippe MD ANESTHESIA: Piyush Forte MD ANESTHESIA TYPE: General. SPECIMEN SENT: Cytology, culture, abdominal fluid. ESTIMATED BLOOD LOSS: 5 mL. ADMINISTERED INTRAVENOUS FLUIDS: 800 mL. INDICATION: The patient is a 37-year-old female with a history of 3 days of abdominal pain, worsening, associated with nausea and vomiting. She was counseled regarding risks, benefits, and alternatives of establishing a better diagnosis for diagnostic laparoscopy. After agreeing to risks, benefits, and alternatives, she signed informed consent and was taken in for the procedure. PROCEDURE: The patient was brought to the operating room, placed in supine position on the operating room table with bilateral arms extended 90 degrees perpendicular to the body's midline axis. The anterior abdominal wall was shaved, prepped, and draped in standard surgical fashion. The patient had bilateral lower extremities SCDs placed, she was induced with general anesthesia, endotracheally intubated without incident by Dr. Forte. We then began with a formal timeout, identifying the operative site and procedure. With all parties in agreement, we proceeded first with a supraumbilical approach for Mo entry into the abdomen. It was scribed at the skin and then opened with a 15 blade scalpel, deepened and widened through subcutaneous tissues using Bovie cautery to the anterior fascia of the midline. When identified, the midline fascia was scored and then elevated with Marilia clamps. A blunt entry was made through and through the midline raphe, at which point the preperitoneal tissue was identified. It was elevated with a clamp and then entered sharply with a Metzenbaum scissors. With a window into the peritoneum, a finger was used to bluntly dissect away from the anterior abdominal wall. The Mo was then introduced into the abdomen and the pneumoperitoneum was established to 15 mmHg. Once established, we then, under direct visualization, were able to identify what appeared to be a large amount of green serous fluid associated with a large amount of visceroparietal inflammation and inflammatory changes. There were early stage [id number] adhesions and distended loops of bowel. This was photo-documented for the chart. There did not appear to be any bowel compromise. In fact, the uterus was identified to be in position. There was no clear site of erosion of the patient's intrauterine device. Bilateral adnexa were inspected with a MEDICAL CLAIMS SPECIALIST doctor networks software consultant on the case present in the operating room. She helped establish a diagnosis of pelvic inflammatory disease, given common stigmata. We deferred to her judgment and proceeded with irrigation of the pelvis. The remainder of the intraabdominal viscera was inspected and, other than the dilated loops of small intestines, which appeared to be viable in all areas, and a collapsed loop that was in the pelvis adjacent to the inflammatory changes, there were no findings. The base of the appendix was identified and followed to its tip, which appeared normal and healthy. The decision was made to leave it and not proceed with any bowel resection at this time. The gallbladder appeared healthy, martina egg blue, adjacent to the liver's border, which also appeared healthy. Upon repositioning of the patient, there did appear to be no adhesions at the hepatic border. There was, however, a small amount of the fluid adjacent to the liver as well. All 4 quadrants were identified and then irrigated with approximately 6 L of sterile irrigation fluid, which was retrieved from the abdomen as well. This was after sending specimens for culture and cytologic evaluation using suction traps sterilely. The patient then had the trocars removed under direct visualization. The port site at the umbilicus Mo entry was closed using 0 Vicryl in interrupted fashion using a [id number] with the pneumoperitoneum relieved. The skin was cleaned and then closed using 5-0 Vicryl in interrupted fashion. Sterile absorbant dressings were placed. The patient was awoken from general anesthesia, having tolerated anesthesia well. Counts were correct at the end of the procedure. MD JERE [id number]
[2017-11-18 08:29] LABS: ALBUMIN 2.6 g/dl (3.4-5.0); ANION GAP 9 (8-16); BLOOD UREA NITROGEN 10 mg/dL (7-18); CALCIUM 7.7 mg/dL (8.5-10.1); CHLORIDE 108 mmol/L (98-107); CO2 21 mmol/L (21-32); GLUCOSE,RANDOM 69 mg/dL (74-106); POTASSIUM 4.5 mmol/L (3.5-5.1); SODIUM 138 mmol/L (136-145)
[2017-11-18 08:33] LABS: ALK PHOS 45 U/L (45-117); BILIRUBIN,TOTAL 0.5 mg/dL (0.2-1.0); CREATININE 0.6 mg/dL (0.55-1.02); SGOT/AST 14 U/L (15-37); SGPT/ALT 13 U/L (12-78); TOT PROT 6.7 g/dl (6.4-8.2)
--- NOTE | 2017-11-18 09:52 | PN ---
Progress Note (short form) - Note Progress Note: ID Consult dictated S/P Laparoscopy/ washout PID Await c/s Continue cefoxitin/ doxycycline
--- NOTE | 2017-11-18 09:53 | PN ---
Progress Note, Physician Chief Complaint: sbo History of Present Illness: 37yo no significant PMH BIBEMS with complaints of severe abdominal pain that started 3 days ago. She initially thought that he menstruation was starting ( LMP ~1 month ago) but the pain gradually became worse and was focal to her epigastrium. CT scan shows SBO with transition in LUQ mid abdomen and complex ascites in the pelvis and an adnexal cyst. no acute issue overnight. - Current Medication List Current Medications: Active Medications Hydromorphone HCl (Dilaudid Cytogenetic Technologist -) 10 mg DATA ENTRY OPERATOR DATA ENTRY OPERATOR ZOEY; Protocol Stop: 11/24/17 18:44 Last Admin: 11/18/17 07:07 Dose: Not Given Sodium Chloride (Normal Saline -) 1,000 mls @ 100 mls/hr IV ASDIR ZOEY Last Admin: 11/17/17 19:45 Dose: 0 mls Cefoxitin Sodium 2 gm/ (Dextrose) 100 mls @ 200 mls/hr IVPB Q6H-IV ZOEY; Protocol Metronidazole (Flagyl 500mg Premixed Ivpb -) 500 mg in 100 mls @ 100 mls/hr IVPB Q8H-IV ZOEY Last Admin: 11/18/17 01:26 Dose: 100 mls/hr Doxycycline Hyclate 100 mg/ (Dextrose) 100 mls @ 50 mls/hr IVPB BID ZOEY Last Admin: 11/17/17 21:42 Dose: 50 mls/hr Cefoxitin Sodium 2 gm/ (Dextrose) 100 mls @ 200 mls/hr IVPB Q6H ZOEY Stop: 11/18/17 10:29 Last Admin: 11/18/17 09:00 Dose: 200 mls/hr Lorazepam (Ativan Injection -) 0.5 mg IVPUSH BID PRN PRN Reason: ANXIETY Nicotine (Nicoderm Patch -) 14 mg TD DAILY ZOEY Ondansetron HCl (Zofran Injection) 4 mg IVPUSH Q6H PRN PRN Reason: NAUSEA Pantoprazole Sodium (Protonix Iv) 40 mg IVPUSH DAILY ZOEY - Objective Vital Signs: Vital Signs Temperature 99.3 F 11/18/17 06:36 Pulse Rate 78 11/18/17 06:36 Respiratory Rate 18 11/18/17 06:36 Blood Pressure 105/49 11/18/17 06:36 O2 Sat by Pulse Oximetry (%) 100 11/17/17 21:00 Constitutional: Yes: No Distress, Calm Eyes: Yes: Conjunctiva Clear, EOM Intact HENT: Yes: Atraumatic, Normocephalic Neck: Yes: Supple, Trachea Midline Cardiovascular: Yes: Regular Rate and Rhythm, S1, S2 Respiratory: Yes: Regular, CTA Bilaterally Gastrointestinal: Yes: Normal Bowel Sounds, Soft, Tenderness (periumbilical) ...Rectal Exam: Yes: Deferred Genitourinary: No: CVA Tenderness - Left, CVA Tenderness - Right Musculoskeletal: No: Muscle Pain, Muscle Weakness Extremities: No: Cool, Cyanosis Edema: No Peripheral Pulses WNL: Yes Peripheral Pulses: Left Radial: 2+, Right Radial: 2+, Left Doralis Pedis: 2+, Right Dorsalis Pedis: 2+ Integumentary: No: Jaundice, Rash Wound/Incision: Yes: Clean/Dry, Well Approximated, Dressing Dry and Intact Neurological: Yes: Alert, Oriented Psychiatric: Yes: Alert, Oriented Labs: CBC, BMP 11/18/17 06:49 11/18/17 06:49 INR, PTT INR 1.21 (0.82-1.09) H 11/17/17 07:15 Problem List - Problems (1) Pelvic inflammatory disease (PID) Assessment/Plan: 37yo female no significant PMH with abdominal pain, SBO with transition point on CTscan. No previous surgery. Unable to rectify possible adnexal pathology with SBO. POD#1 s/p diagnostic laparoscopy and abdominal washout for PID with associated ileus diet as tolerated continue IV antibiotics adequate analgesia - continue DATA ENTRY OPERATOR early ambulation Abdominal Xray to monitor resolution of ileus will follow peripherally Code(s): N73.9 - FEMALE PELVIC INFLAMMATORY DISEASE, UNSPECIFIED (2) Small bowel obstruction Code(s): K56.609 - UNSP INTESTNL OBST, UNSP TO PARTIAL VERSUS COMPLETE OBST (3) Abdominal pain in female Code(s): R10.9 - UNSPECIFIED ABDOMINAL PAIN (4) IUD (intrauterine device) in place Code(s): Z97.5 - PRESENCE OF (INTRAUTERINE) CONTRACEPTIVE DEVICE (5) Vomiting Code(s): R11.10 - VOMITING, UNSPECIFIED Qualifiers: Vomiting type: bilious vomiting Nausea presence: with nausea Qualified Code(s): R11.14 - Bilious vomiting (6) Peritoneal fluid Code(s): R18.8 - OTHER ASCITES Qualifiers: Ascites type: other type Qualified Code(s): R18.8 - Other ascites
--- NOTE | 2017-11-18 09:54 | PN ---
Progress Note (short form) - Note Progress Note: Crnp Follow up s/p diagnostic laproscopy , PID with peritonitis is diagnosed pt c/o pain 10/10 oob only to bathroom not passing flatus yet c/o dryness of mouth . pt upset & crying o/e Selected Entries 11/18/17 06:36 Temperature 99.3 F Pulse Rate 78 Blood Pressure 105/49 RS cta p/a soft , BS audible . tenderness Incision wound dressing dry ass s/p laproscopy , ac pid & peritonitis on IV Cefoxitin , IV flagyl & iV doxycyclin Plan : pt informed about findings of pid & fluid in peritoneal cavity normal wbc count does not explain the findings noted In my opinion IUD should be removed , pt is willing to get out she had questions about future pregnancies. I informed her possibility of adhesions , tubo ovarian adhesions ,tubal block chr pid etc po management as per Surgeons Dr Rhodes recommend continue IV antibiotics for atleast 72 hrs & while she is in hospital . discharge on po antibiotics . total 14 days of antibiotics Problem List - Problems (1) Abdominal pain in female Code(s): R10.9 - UNSPECIFIED ABDOMINAL PAIN (2) IUD (intrauterine device) in place Code(s): Z97.5 - PRESENCE OF (INTRAUTERINE) CONTRACEPTIVE DEVICE (3) Small bowel obstruction Code(s): K56.609 - UNSP INTESTNL OBST, UNSP TO PARTIAL VERSUS COMPLETE OBST (4) Substance abuse Code(s): F19.10 - OTHER PSYCHOACTIVE SUBSTANCE ABUSE, UNCOMPLICATED (5) Acute PID (pelvic inflammatory disease) Code(s): N73.0 - ACUTE PARAMETRITIS AND PELVIC CELLULITIS (6) Peritonitis Code(s): K65.9 - PERITONITIS, UNSPECIFIED
[2017-11-18] MEDS: NICOTINE 14 MG/24 HOURS TOPICAL PATCH TD SCH (09:57)
[2017-11-18] MEDS ORDERED: PANTOPRAZOLE SODIUM 40 MG VIAL IVPUSH SCH (10:00)
[2017-11-18] MEDS: DOXYCYCLINE INJECTION 100 MG in DEXTROSE 5%-WATER - 100 ML IVPB SCH ×2 (11:08→21:23)
--- NOTE | 2017-11-18 12:01 | CONS ---
DATE OF CONSULTATION: DATE OF DICTATION: 11/18/2017 The patient is a 37-year-old female evaluated for PID. She presented to the emergency room on November 16, 2017, with abdominal pain, nausea, vomiting, anorexia, constipation. She was found on CT scan to have complex peritoneal fluid with a small bowel obstruction. The patient underwent a laparoscopy with washout and endoscopic findings included PID. She was empirically treated with cefoxitin and doxycycline. Presently, she complains of diffuse abdominal discomfort. She denies any recurrent nausea, vomiting. No complaints of fever or chills. LAST MENSTRUAL PERIOD: Approximately 1 month ago. She is status post IUD placement. Urine test negative. LABORATORY DATA: White count on admission 15.6, presently 5.7; hematocrit 29.3; platelet count 224. Creatinine 0.6. Urinalysis with 5 white cells. GC and chlamydia probe pending. Blood cultures were not done. PHYSICAL EXAMINATION: General: She is awake and alert, supine in bed. Vital Signs: Temperature 99.3, blood pressure 105/49, pulse 78 and regular, respirations 18/min. HEENT: Sclerae anicteric. Heart Sounds: S1, S2. Lungs: Clear. Abdomen: Distended, tympanitic, mild diffuse tenderness. Surgical wounds with dressings in place. Extremities: Negative for edema, negative Homans. IMPRESSION: 1. Postoperative laparoscopy with washout. 2. Pelvic inflammatory disease. Await cultures, obtain blood cultures, continue empiric antibiotic coverage with cefoxitin and doxycycline, surgical followup. Thank you for the kind referral. SHEREEN PIERSON M.D. [id number]
--- NOTE | 2017-11-18 12:57 | PN ---
Teaching Attending Note Name of Resident: Carlie Andino ATTENDING PHYSICIAN STATEMENT I saw and evaluated the patient. I reviewed the resident's note and discussed the case with the resident. I agree with the resident's findings and plan as documented. SUBJECTIVE: Patient is more confortable on pain meds, OBJECTIVE: Vital Signs Temperature 99.2 F 11/18/17 10:00 Pulse Rate 77 11/18/17 11:00 Respiratory Rate 20 11/18/17 11:00 Blood Pressure 109/56 11/18/17 11:00 O2 Sat by Pulse Oximetry (%) 96 11/18/17 09:00 CBCD WBC 5.7 K/mm3 (4.0-10.0) 11/18/17 06:49 RBC 3.41 M/mm3 (3.60-5.2) L 11/18/17 06:49 Hgb 9.7 GM/dL (10.7-15.3) L 11/18/17 06:49 Hct 29.3 % (32.4-45.2) L 11/18/17 06:49 MCV 85.9 fl (80-96) 11/18/17 06:49 MCHC 33.1 g/dl (32.0-36.0) 11/18/17 06:49 RDW 15.1 % (11.6-15.6) 11/18/17 06:49 Plt Count 224 K/MM3 (134-434) 11/18/17 06:49 MPV 8.4 fl (7.5-11.1) 11/18/17 06:49 CMP Sodium 138 mmol/L (136-145) 11/18/17 06:49 Potassium 4.5 mmol/L (3.5-5.1) 11/18/17 06:49 Chloride 108 mmol/L (98-107) H 11/18/17 06:49 Carbon Dioxide 21 mmol/L (21-32) 11/18/17 06:49 Anion Gap 9 (8-16) 11/18/17 06:49 BUN 10 mg/dL (7-18) 11/18/17 06:49 Creatinine 0.6 mg/dL (0.55-1.02) 11/18/17 06:49 Creat Clearance w eGFR > 60 (>60) 11/18/17 06:49 Random Glucose 69 mg/dL (74-106) L 11/18/17 06:49 Calcium 7.7 mg/dL (8.5-10.1) L 11/18/17 06:49 Total Bilirubin 0.5 mg/dL (0.2-1.0) 11/18/17 06:49 AST 14 U/L (15-37) L 11/18/17 06:49 ALT 13 U/L (12-78) 11/18/17 06:49 Alkaline Phosphatase 45 U/L (45-117) 11/18/17 06:49 Total Protein 6.7 g/dl (6.4-8.2) 11/18/17 06:49 Albumin 2.6 g/dl (3.4-5.0) L 11/18/17 06:49 Current Medications Generic Name Dose Route Start Last Admin Trade Name Freq PRN Reason Stop Dose Admin Hydromorphone HCl 10 mg 11/17/17 18:45 11/18/17 07:07 Dilaudid Drafter Apprentice - SENIOR SALES DIRECTOR 11/24/17 18:44 Not Given SENIOR SALES DIRECTOR ZOEY Protocol Sodium Chloride 1,000 mls @ 100 mls/hr 11/17/17 18:45 11/17/17 19:45 Normal Saline - IV 0 mls ASDIR ZOEY Administration Doxycycline Hyclate 100 mg/ 100 mls @ 50 mls/hr 11/17/17 22:00 11/18/17 11:08 Dextrose IVPB 50 mls/hr BID ZOEY Administration Cefoxitin Sodium 2 gm/ 100 mls @ 200 mls/hr 11/18/17 15:00 Dextrose IVPB Q6H-IV ZOEY Protocol Lorazepam 0.5 mg 11/17/17 18:36 Ativan Injection - IVPUSH BID PRN ANXIETY Nicotine 14 mg 11/18/17 10:00 11/18/17 09:57 Nicoderm Patch - TD 14 mg DAILY ZOEY Administration Ondansetron HCl 4 mg 11/17/17 18:16 Zofran Injection IVPUSH Q6H PRN NAUSEA Pantoprazole Sodium 40 mg 11/18/17 10:00 11/18/17 09:57 Protonix Iv IVPUSH 40 mg DAILY ZOEY Administration Home Medications Medication Instructions Recorded NK [No Known Home Medication] 11/16/17 ASSESSMENT AND PLAN: Patient is a 37yo female with no significant PMHx presented to ED. c/o having severe abdominal pain requiring IV morphine, CT of abdomen/pelvis positive for SBO , patient has no previous surgery. # POD #1 s/p diagnostic laparoscopy and abdominal washout for PID by on IV antibiotic Cefoxitin and Doxyxycline day #1 , waiting for culture copic Acute abdominal pain with cannot r/o PID, pelvic US ordered, discussed with the surgeon, and the radiologist , patient will be going to laporoscopic procedure to ID the cause of the severe abdominal pain. NPO,IVF, NGT for decompression. MOLD RELEASE WORKER consult, # Hx of IUD placed around 3 months ago DVT PX: SCDs for now.
[2017-11-18] MEDS ORDERED: PT OWN MED DRAWER 7, Y5N ONE ×2 (14:18→19:45)
[2017-11-18] MEDS: SODIUM CHLORIDE 1,000 ML IV SCH ×2 (14:37→18:22)
--- NOTE | 2017-11-18 14:40 | PN ---
Physical Exam: SUBJECTIVE: Patient seen and examined at bedside. Overnight, pt OOB. PO Day 1 dx Laparascopy w abdominal washout. Today, pt c/o diffuse abdominal pain, increased in pelvic area. Has been using STRATEGIC CLIENT EXECUTIVE pump. NPO, without N/V/D. Denies NELSON , fever, chills, SOB, or changes in urinary function. OBJECTIVE: Vital Signs Period Temp Pulse Resp BP Sys/Gutiérrez Pulse Ox Last 24 Hr 98.2 F-99.3 F 77-106 17-24 104-138/49-85 96-100 GENERAL: The patient is anxious, resting in bed. awake, alert, and fully oriented, in no acute distress. HEAD: Normal with no signs of trauma. EYES: PERRL, extraocular movements intact, sclera anicteric, conjunctiva clear. ENT: Ears normal, nares patent, oropharynx clear without exudates, moist mucous membranes. NECK: Trachea midline, supple. LUNGS: Breath sounds equal, clear to auscultation bilaterally, no wheezes, no crackles, no accessory muscle use. HEART: Regular rate and rhythm, S1, S2 without murmur, rub or gallop. ABDOMEN: Soft, +diffusey TTP in epigastrium, suprapubic regions. nondistended, normoactive bowel sounds, +mild guarding. surgical incisions with bandages, without drainage. EXTREMITIES: 2+ pt pulses, warm, well-perfused, no edema. NEUROLOGICAL: Cranial nerves II through XII grossly intact. PSYCH: Normal mood, normal affect. SKIN: Warm, dry, normal turgor Laboratory Tests 11/18/17 11/18/17 06:49 06:49 WBC 5.7 Hgb 9.7 L Hct 29.3 L Plt Count 224 Sodium 138 Potassium 4.5 Chloride 108 H Carbon Dioxide 21 BUN 10 Creatinine 0.6 AST 14 L ALT 13 Albumin 2.6 L 11/17/17 14:55 Opiates Screen Positive Methadone Screen Negative Barbiturate Screen Negative Phencyclidine Screen Negative Ur Amphetamines Screen Negative MDMA (Ecstasy) Screen Negative Benzodiazepines Screen Positive Cocaine Screen Negative U Marijuana (THC) Screen Positive 11/17/17 11/18/17 14:55 06:00 RPR Titer Nonreactive C. trachomatis (SILVINO) Pending N. gonorrhoeae (SILVINO) Pending Active Medications Generic Name Dose Route Start Last Admin Trade Name Freq PRN Reason Stop Dose Admin Hydromorphone HCl 10 mg 11/17/17 18:45 11/18/17 07:07 Dilaudid Polysomnography Tech - STRATEGIC CLIENT EXECUTIVE 11/24/17 18:44 Not Given STRATEGIC CLIENT EXECUTIVE ZOEY Protocol Sodium Chloride 1,000 mls @ 100 mls/hr 11/17/17 18:45 11/18/17 14:37 Normal Saline - IV 100 mls/hr ASDIR ZOEY Administration Doxycycline Hyclate 100 mg/ 100 mls @ 50 mls/hr 11/17/17 22:00 11/18/17 11:08 Dextrose IVPB 50 mls/hr BID ZOEY Administration Cefoxitin Sodium 2 gm/ 100 mls @ 200 mls/hr 11/18/17 15:00 11/18/17 14:35 Dextrose IVPB 200 mls/hr Q6H-IV ZOEY Administration Protocol Lorazepam 0.5 mg 11/17/17 18:36 Ativan Injection - IVPUSH BID PRN ANXIETY Nicotine 14 mg 11/18/17 10:00 11/18/17 09:57 Nicoderm Patch - TD 14 mg DAILY ZOEY Administration Ondansetron HCl 4 mg 11/17/17 18:16 Zofran Injection IVPUSH Q6H PRN Pantoprazole Sodium 40 mg 11/18/17 10:00 11/18/17 09:57 Protonix Iv IVPUSH 40 mg DAILY ZOEY Administration IMAGING 11/17/17: CTAP w/contrast: moderate to marked dilatation of the small bowel loops in the abdomen and pelvis consistent with distal SBO. terminal ileum is not definitely identified. the appendix is not seen. normal size proximal jejunal loops are present. mesenteric stranding in the R and to a lesser extent L flank which is of uncertain etiology may be due to peritonitis. no adjacent colonic wall thickening is present to suggest colitis. correlate clinically. moderate to large amount of free fluid/ascites in the lower abdomen/pelvis and to a lesser extent in both flanks and left upper abdomen measuring 22 [place] units compatible with fluid. IUD in satisfactory position. likely partially ruptured R and L ovarian follicle. 11/17/17: TVUS: the uterus appears unremarkable with IUD in place. both ovaries were not visualized. there is a significant amount of free fluid in the pelvis with echoes and debris on some of the images suggestive of complex fluid. r/o hemorrhagic fluid. 11/17/17: CXR: NGT tip seen in LUQ/stomach. 11/18/17: Abdomen flat and upright: increasing small bowel distension with air fluid levels. appearance more of a small bowel or partial SBO than an ileus. free air not seen. iud present. lung bases well aerated. still retained stool in colon ASSESSMENT/PLAN: 37 y/o F w/ no PMH presents to the ER with nausea, vomiting, epigastric pain x 2 days. Admitted for SBO. #Acute pelvic inflammatory disease (PID) -with SBO, unresolved by NGT had proceeded to OR -s/p dx laparoscopy, abdominal washout (PO Day 1) -continue doxycycline 100mg IVPB BID, cefoxitin 2gm IVPB q6h (Day1) -as per pt, IUD for removal tomorrow by obgyn -STRATEGIC CLIENT EXECUTIVE pump, tylenol 650mg PO q4h PRN for pain control. -OOB -F/u blood cx, abdominal gram stain, wound cx -pending -RPR nonreactive. f/u c.tracho, gono testing -encouraged incentive spirometer use. d/w patient at bedside -zofran 4 mg iv q6h prn for nausea -surgery: Dr. Rhodes -household chores: Dr. Barahona -ID: Dr. Joseph #Nicotine dependance -continue Nicotine Patch 14 mg TD qd #PPX DVT: SCDs, EAM #F/E/N -NS @ 42 mls/hr; KVO -continue to follow lytes -vegetarian diet #Dispo continued monitoring on med-surg Visit type - Emergency Visit Emergency Visit: No - New Patient This patient is new to me today: Yes Date on this admission: 11/18/17 - Critical Care Critical Care patient: No
[2017-11-18] MEDS ORDERED: SODIUM CHLORIDE 1,000 ML IV SCH (15:15)
--- NOTE | 2017-11-18 16:28 | PN ---
Progress Note (short form) - Note Progress Note: Anesthesiology Post-op/Pain Service 37 y.o. POD#1 s/p diagnostic laparoscopy under GA with post-op Dilaudid CLINICAL QUALITY MANAGER. Pt. is sitting up, appears comfortable, talking with friends. When questioned, she states that she is in a lot of pain. She is using the CLINICAL QUALITY MANAGER. Otherwise, VSS, no n/v. Tolerating PO. No anesthesia-related issues. 37 y.o. s/p diagnostic laparoscopy with stable post-operative course. Will add PO acetaminophen and d/w pt. the importance of ambulation and incentive spirometry. Also discussed that CLINICAL QUALITY MANAGER will likely be d/c'd tomorrow. She understands and RN is aware.
[2017-11-19] MEDS: LORazepam 2 MG/ML SDV VIAL IVPUSH PRN (01:25)
[2017-11-19] MEDS: CEFOXITIN SODIUM 2 GM in DEXTROSE 5%-WATER - 100 ML IVPB SCH ×4 (02:43→20:19)
--- NOTE | 2017-11-19 08:17 | PN ---
Progress Note (short form) - Note Progress Note: Aquatic Physiotherapist f/u pt c/o abd pain severe , mainly around umblicus no vomiting voiding well not passing flatus , , no bm yet feels hungry , eats reg diet, tolerating . pt is very anxious , concerned about std Selected Entries 11/19/17 06:37 Temperature 99.9 F H Pulse Rate 76 Blood Pressure 132/84 p/a soft . incision dressing not changed bs active Laboratory Tests 11/18/17 11/18/17 06:49 06:49 WBC 5.7 Hgb 9.7 L Hct 29.3 L MCV 85.9 Plt Count 224 Neutrophils % 72.0 D Lymphocytes % 16.3 D Sodium 138 Potassium 4.5 Chloride 108 H Carbon Dioxide 21 Anion Gap 9 BUN 10 Calcium 7.7 L Total Bilirubin 0.5 AST 14 L ALT 13 ass ; pt on IV Cefoxtiln & IV doxycyclin for treatment of PID cultures peritneal fluid pending , gc/ct culture pending pt does not have classical presentation of PiD , labs do not favor the diagnosis possibility of intestinal inflamation causing uterine & adnexal inflamation may be there plan esr, creactive protein , hiv testing Current literature view is not to remove iud Problem List - Problems (1) Abdominal pain in female Code(s): R10.9 - UNSPECIFIED ABDOMINAL PAIN (2) IUD (intrauterine device) in place Code(s): Z97.5 - PRESENCE OF (INTRAUTERINE) CONTRACEPTIVE DEVICE (3) Small bowel obstruction Code(s): K56.609 - UNSP INTESTNL OBST, UNSP TO PARTIAL VERSUS COMPLETE OBST (4) Substance abuse Code(s): F19.10 - OTHER PSYCHOACTIVE SUBSTANCE ABUSE, UNCOMPLICATED (5) Acute PID (pelvic inflammatory disease) Code(s): N73.0 - ACUTE PARAMETRITIS AND PELVIC CELLULITIS (6) Peritonitis Code(s): K65.9 - PERITONITIS, UNSPECIFIED
[2017-11-19 08:20] LABS: BASO % 0.4 % (0-2.0); EOS % 3.1 % (0-4.5); HEMATOCRIT 29.5 % (32.4-45.2); HEMOGLOBIN 9.8 GM/dL (10.7-15.3); LYMPH % 24.7 % (8-40); MCH 28.2 pg (25.7-33.7); MCHC 33.2 g/dl (32.0-36.0); MEAN CELL VOLUME 84.8 fl (80-96); MEAN PLT VOLUME 8.4 fl (7.5-11.1); MONO % 10.9 % (3.8-10.2); NEUT % 60.9 % (42.8-82.8); PLATELET COUNT 245 K/MM3 (134-434); RBC 3.48 M/mm3 (3.60-5.2); RDW 15.3 % (11.6-15.6); WHITE BLOOD COUNT 5.5 K/mm3 (4.0-10.0)
[2017-11-19 08:39] LABS: ANION GAP 6 (8-16); BLOOD UREA NITROGEN 5 mg/dL (7-18); CALCIUM 7.9 mg/dL (8.5-10.1); CHLORIDE 108 mmol/L (98-107); CO2 23 mmol/L (21-32); CREATININE 0.6 mg/dL (0.55-1.02); GLUCOSE,RANDOM 78 mg/dL (74-106); POTASSIUM 3.7 mmol/L (3.5-5.1); SODIUM 137 mmol/L (136-145)
--- NOTE | 2017-11-19 09:20 | PN ---
Progress Note, Physician Chief Complaint: day #2 s/p diagnostic laparoscopy - Current Medication List Current Medications: Active Medications Acetaminophen (Tylenol -) 650 mg PO Q4H PRN PRN Reason: FEVER Hydromorphone HCl (Dilaudid Journalism Internship -) 10 mg VENEER JOINTER HELPER VENEER JOINTER HELPER [facility]; Protocol Stop: 11/24/17 18:44 Last Admin: 11/18/17 17:50 Dose: Not Given Doxycycline Hyclate 100 mg/ (Dextrose) 100 mls @ 50 mls/hr IVPB BID ZOEY Last Admin: 11/18/17 21:23 Dose: 50 mls/hr Cefoxitin Sodium 2 gm/ (Dextrose) 100 mls @ 200 mls/hr IVPB Q6H-IV ZOEY; Protocol Last Admin: 11/19/17 02:43 Dose: 200 mls/hr Sodium Chloride (Normal Saline -) 1,000 mls @ 42 mls/hr IV ASDIR ZOEY Last Admin: 11/18/17 18:22 Dose: 42 mls/hr Lorazepam (Ativan Injection -) 0.5 mg IVPUSH BID PRN PRN Reason: ANXIETY Last Admin: 11/19/17 01:25 Dose: 0.5 mg Nicotine (Nicoderm Patch -) 14 mg TD DAILY [facility] Last Admin: 11/18/17 09:57 Dose: 14 mg Ondansetron HCl (Zofran Injection) 4 mg IVPUSH Q6H PRN PRN Reason: NAUSEA Pantoprazole Sodium (Protonix -) 40 mg PO DAILY [facility] - Objective Vital Signs: Vital Signs Temperature 99.9 F H 11/19/17 06:37 Pulse Rate 76 11/19/17 07:00 Respiratory Rate 18 11/19/17 07:00 Blood Pressure 132/84 11/19/17 07:00 O2 Sat by Pulse Oximetry (%) 100 11/18/17 20:59 Labs: CBC, BMP 11/19/17 07:01 INR, PTT INR 1.21 (0.82-1.09) H 11/17/17 07:15 Assessment/Plan Pt's continued pain likely related to presumptive PID, less so to incisional pain from surgery. Will continue VENEER JOINTER HELPER for now, and add dose of IV ofirmev
[2017-11-19] MEDS ORDERED: oxyCODONE HCL 5 MG TABLET PO PRN (09:39)
[2017-11-19] MEDS ORDERED: ACETAMINOPHEN 1000 MG/100 ML VIAL (NON FORMULARY) IVPB ONE (11:00)
[2017-11-19] MEDS: NICOTINE 14 MG/24 HOURS TOPICAL PATCH TD SCH (11:08)
[2017-11-19] MEDS: DOXYCYCLINE INJECTION 100 MG in DEXTROSE 5%-WATER - 100 ML IVPB SCH ×2 (11:09→22:44)
[2017-11-19] MEDS: PANTOPRAZOLE 40 MG TABLET (FP) PO SCH (11:24)
[2017-11-19] MEDS ORDERED: IBUPROFEN 400 MG TABLET (FP) PO PRN ×2 (12:41→12:42)
[2017-11-19 13:59] LABS: MAGNESIUM 1.4 mg/dL (1.8-2.4); PHOSPHOROUS 2.7 mg/dL (2.5-4.9)
[2017-11-19] MEDS ORDERED: HYDROmorphone *PCA* 10MG/50ML DISP.SYRIN PCA SCH (15:45)
--- NOTE | 2017-11-19 15:58 | PN ---
Progress Note, Physician Chief Complaint: sbo History of Present Illness: 37yo no significant PMH BIBEMS with complaints of severe abdominal pain that started 3 days ago. She initially thought that he menstruation was starting ( LMP ~1 month ago) but the pain gradually became worse and was focal to her epigastrium. CT scan shows SBO with transition in LUQ mid abdomen and complex ascites in the pelvis and an adnexal cyst. no acute issue overnight. - Current Medication List Current Medications: Active Medications Acetaminophen (Tylenol -) 650 mg PO Q4H PRN PRN Reason: FEVER Doxycycline Hyclate 100 mg/ (Dextrose) 100 mls @ 50 mls/hr IVPB BID [facility] Last Admin: 11/19/17 11:09 Dose: 50 mls/hr Cefoxitin Sodium 2 gm/ (Dextrose) 100 mls @ 200 mls/hr IVPB Q6H-IV ZOEY; Protocol Last Admin: 11/19/17 14:22 Dose: 200 mls/hr Sodium Chloride (Normal Saline -) 1,000 mls @ 42 mls/hr IV ASDIR [facility] Last Admin: 11/18/17 18:22 Dose: 42 mls/hr Ibuprofen (Motrin -) 400 mg PO Q6H PRN PRN Reason: PAIN LEVEL 7 - 10 Lorazepam (Ativan Injection -) 0.5 mg IVPUSH BID PRN PRN Reason: ANXIETY Last Admin: 11/19/17 01:25 Dose: 0.5 mg Nicotine (Nicoderm Patch -) 14 mg TD DAILY [facility] Last Admin: 11/19/17 11:08 Dose: 14 mg Ondansetron HCl (Zofran Injection) 4 mg IVPUSH Q6H PRN PRN Reason: NAUSEA Pantoprazole Sodium (Protonix -) 40 mg PO DAILY [facility] Last Admin: 11/19/17 11:24 Dose: 40 mg - Objective Vital Signs: Vital Signs Temperature 98.2 F 11/19/17 14:00 Pulse Rate 81 11/19/17 15:00 Respiratory Rate 18 11/19/17 15:00 Blood Pressure 109/63 11/19/17 15:00 O2 Sat by Pulse Oximetry (%) 100 11/19/17 09:00 Vital Signs Period Temp Pulse Resp BP Sys/Gutiérrez Pulse Ox Last 24 Hr 98.1 F-99.9 F 74-86 16-20 106-132/63-84 100-100 Constitutional: Yes: Well Nourished, No Distress, Calm Eyes: Yes: Conjunctiva Clear, EOM Intact HENT: Yes: Atraumatic, Normocephalic Neck: Yes: Supple, Trachea Midline Cardiovascular: Yes: Regular Rate and Rhythm, S1, S2 Respiratory: Yes: Regular, CTA Bilaterally Gastrointestinal: Yes: Normal Bowel Sounds, Soft, Tenderness (periumbilical incison) Extremities: No: Cool, Cyanosis Edema: No Peripheral Pulses WNL: Yes Peripheral Pulses: Left Doralis Pedis: 2+, Right Dorsalis Pedis: 2+ Wound/Incision: Yes: Clean/Dry, Well Approximated, Sutures Intact, Open to air Neurological: Yes: Alert, Oriented Psychiatric: Yes: Alert, Oriented Labs: CBC, BMP 11/19/17 07:01 11/19/17 07:01 INR, PTT INR 1.21 (0.82-1.09) H 11/17/17 07:15 Problem List - Problems (1) Pelvic inflammatory disease (PID) Assessment/Plan: 37yo female no significant PMH with abdominal pain, SBO with transition point on CTscan. No previous surgery. Unable to rectify possible adnexal pathology with SBO. POD#3 s/p diagnostic laparoscopy and abdominal washout for PID with associated ileus tolerating PO. denies BM and flatus. management per primary team diet as tolerated continue IV antibiotics adequate analgesia early ambulation will follow peripherally Code(s): N73.9 - FEMALE PELVIC INFLAMMATORY DISEASE, UNSPECIFIED (2) Small bowel obstruction Code(s): K56.609 - UNSP INTESTNL OBST, UNSP TO PARTIAL VERSUS COMPLETE OBST (3) Abdominal pain in female Code(s): R10.9 - UNSPECIFIED ABDOMINAL PAIN (4) IUD (intrauterine device) in place Code(s): Z97.5 - PRESENCE OF (INTRAUTERINE) CONTRACEPTIVE DEVICE (5) Vomiting Code(s): R11.10 - VOMITING, UNSPECIFIED Qualifiers: Vomiting type: bilious vomiting Nausea presence: with nausea Qualified Code(s): R11.14 - Bilious vomiting (6) Peritoneal fluid Code(s): R18.8 - OTHER ASCITES Qualifiers: Ascites type: other type Qualified Code(s): R18.8 - Other ascites
--- NOTE | 2017-11-19 16:11 | PN ---
Physical Exam: SUBJECTIVE: Patient seen and examined at bedside. Overnight, pt complaining of intermittent abdominal pain and cramping. On period. Today, pt continues of same pain. Requiring DOCTOR OF CHIROPRACTIC pump. Has been OOB, tolerating PO diet well. Denies NELSON , fever, chills, N/V, or changes in urinary or bowel function. OBJECTIVE: Vital Signs Period Temp Pulse Resp BP Sys/Gutiérrez Pulse Ox Last 24 Hr 98.1 F-99.9 F 74-86 16-20 106-132/63-84 100-100 GENERAL: The patient is resting in bed. awake, alert, and fully oriented, in mild distress HEAD: Normal with no signs of trauma. EYES: PERRL, extraocular movements intact, sclera anicteric, conjunctiva clear. ENT: Ears normal, nares patent, oropharynx clear without exudates, moist mucous membranes. NECK: Trachea midline, supple. LUNGS: Breath sounds equal, clear to auscultation bilaterally, no wheezes, no crackles, no accessory muscle use. +poor inspiratory effort HEART: Regular rate and rhythm, S1, S2 without murmur, rub or gallop. ABDOMEN: Soft, diffusely TTP in epigastrium, suprapubic regions, nondistended, normoactive bowel sounds, no guarding. +bandages, binder intact. without drainage. EXTREMITIES: 2+ pt pulses, warm, well-perfused, no edema. NEUROLOGICAL: Cranial nerves II through XII grossly intact. PSYCH: Normal mood, normal affect. SKIN: Warm, dry, normal turgor Laboratory Results 11/19/17 11/19/17 11/19/17 07:01 07:01 09:00 WBC 5.5 RBC 3.48 L Hgb 9.8 L Hct 29.5 L MCV 84.8 MCH 28.2 MCHC 33.2 RDW 15.3 Plt Count 245 MPV 8.4 Absolute Neuts (auto) 3.4 Neutrophils % 60.9 Lymphocytes % 24.7 D Monocytes % 10.9 H Eosinophils % 3.1 D Basophils % 0.4 Nucleated RBC % 0 ESR Sodium 137 Potassium 3.7 Chloride 108 H Carbon Dioxide 23 Anion Gap 6 L BUN 5 L Creatinine 0.6 Creat Clearance w eGFR > 60 Random Glucose 78 Calcium 7.9 L Phosphorus 2.7 Magnesium 1.4 L C-Reactive Protein 2.6 H HIV 1&2 Antibody Screen HIV P24 Antigen Additional tests 11/17/17 11/18/17 11/19/17 14:55 06:00 09:00 RPR Titer Nonreactive C. trachomatis (SILVINO) Pending HIV 1&2 Antibody Screen Negative HIV P24 Antigen Negative N. gonorrhoeae (SILVINO) Pending Active Medications Generic Name Dose Route Start Last Admin Trade Name Freq PRN Reason Stop Dose Admin Acetaminophen 650 mg 11/18/17 16:28 Tylenol - PO Q4H PRN FEVER Doxycycline Hyclate 100 mg/ 100 mls @ 50 mls/hr 11/17/17 22:00 11/19/17 11:09 Dextrose IVPB 50 mls/hr BID ZOEY Administration Cefoxitin Sodium 2 gm/ 100 mls @ 200 mls/hr 11/18/17 15:00 11/19/17 14:22 Dextrose IVPB 200 mls/hr Q6H-IV ZOEY Administration Protocol Sodium Chloride 1,000 mls @ 42 mls/hr 11/18/17 17:27 11/18/17 18:22 Normal Saline - IV 42 mls/hr ASDIR ZOEY Administration Ibuprofen 400 mg 11/19/17 12:42 Motrin - PO Q6H PRN PAIN LEVEL 7 - 10 Lorazepam 0.5 mg 11/17/17 18:36 11/19/17 01:25 Ativan Injection - IVPUSH 0.5 mg BID PRN Administration ANXIETY Nicotine 14 mg 11/18/17 10:00 11/19/17 11:08 Nicoderm Patch - TD 14 mg DAILY ZOEY Administration Ondansetron HCl 4 mg 11/17/17 18:16 Zofran Injection IVPUSH Q6H PRN NAUSEA Pantoprazole Sodium 40 mg 11/19/17 10:00 11/19/17 11:24 Protonix - PO 40 mg DAILY ZOEY Administration IMAGING 11/17/17: CTAP w/contrast: moderate to marked dilatation of the small bowel loops in the abdomen and pelvis consistent with distal SBO. terminal ileum is not definitely identified. the appendix is not seen. normal size proximal jejunal loops are present. mesenteric stranding in the R and to a lesser extent L flank which is of uncertain etiology may be due to peritonitis. no adjacent colonic wall thickening is present to suggest colitis. correlate clinically. moderate to large amount of free fluid/ascites in the lower abdomen/pelvis and to a lesser extent in both flanks and left upper abdomen measuring 22 [place] units compatible with fluid. IUD in satisfactory position. likely partially ruptured R and L ovarian follicle. 11/17/17: TVUS: the uterus appears unremarkable with IUD in place. both ovaries were not visualized. there is a significant amount of free fluid in the pelvis with echoes and debris on some of the images suggestive of complex fluid. r/o hemorrhagic fluid. 11/17/17: CXR: NGT tip seen in LUQ/stomach. 11/18/17: Abdomen flat and upright: increasing small bowel distension with air fluid levels. appearance more of a small bowel or partial SBO than an ileus. free air not seen. iud present. lung bases well aerated. still retained stool in colon 11/19/17: Abdomen flat and upright: persistent small bowel obstruction. IUD. Retained colonic stool. Microbiology 11/17/17 16:00 Abdomen Gram Stain - Final 11/18/17 10:35 Blood - Peripheral Venous Blood Culture - Preliminary NO GROWTH OBTAINED AFTER 24 HOURS, INCUBATION TO CONTINUE FOR 4 DAYS. 11/18/17 10:25 Blood - Peripheral Venous Blood Culture - Preliminary NO GROWTH OBTAINED AFTER 24 HOURS, INCUBATION TO CONTINUE FOR 4 DAYS. 11/17/17 16:00 Abdomen Wound Culture - Preliminary NO GROWTH OBTAINED AFTER 24 HOURS INCUBATION, REINCUBATED. ASSESSMENT/PLAN: 37 y/o F w/ no PMH presents to the ER with nausea, vomiting, epigastric pain x 2 days. Admitted for SBO. #?Acute pelvic inflammatory disease (PID) -s/p dx laparoscopy, abdominal washout (PO Day 2) -ESR 23, CRP 2.6 - both elevated -continue doxycycline 100mg IVPB BID, cefoxitin 2gm IVPB q6h (Day2) -DOCTOR OF CHIROPRACTIC pump has been d/c, control with ibuprofen 400mg IV q6h PRN -blood cx, abdominal gram stain, wound cx (-) thus far -RPR nonreactive. f/u c.tracho, gono testing- pending. -no further surgical intervention at this time -incentive spirometer -zofran 4 mg iv q6h prn for nausea -surgery: Dr. Rhodes -benefits technician: Dr. Barahona -ID: Dr. Joseph #Nicotine dependance -continue Nicotine Patch 14 mg TD qd #PPX DVT: SCDs, EAM #F/E/N -NS @ 42 mls/hr; KVO -continue to follow lytes -vegetarian diet; tolerating PO well. #Dispo continued monitoring on med-surg Visit type - Emergency Visit Emergency Visit: No - New Patient This patient is new to me today: No - Critical Care Critical Care patient: No
--- NOTE | 2017-11-19 21:59 | PN ---
Teaching Attending Note Name of Resident: Carlie Andino ATTENDING PHYSICIAN STATEMENT I saw and evaluated the patient. I reviewed the resident's note and discussed the case with the resident. I agree with the resident's findings and plan as documented. SUBJECTIVE: Continues ot have pain . OBJECTIVE: Vital Signs Temperature 97.8 F 11/19/17 17:15 Pulse Rate 76 11/19/17 19:00 Respiratory Rate 18 11/19/17 19:00 Blood Pressure 112/63 11/19/17 19:00 O2 Sat by Pulse Oximetry (%) 100 11/19/17 09:00 CBCD WBC 5.5 K/mm3 (4.0-10.0) 11/19/17 07:01 RBC 3.48 M/mm3 (3.60-5.2) L 11/19/17 07:01 Hgb 9.8 GM/dL (10.7-15.3) L 11/19/17 07:01 Hct 29.5 % (32.4-45.2) L 11/19/17 07:01 MCV 84.8 fl (80-96) 11/19/17 07:01 MCHC 33.2 g/dl (32.0-36.0) 11/19/17 07:01 RDW 15.3 % (11.6-15.6) 11/19/17 07:01 Plt Count 245 K/MM3 (134-434) 11/19/17 07:01 MPV 8.4 fl (7.5-11.1) 11/19/17 07:01 CMP Sodium 137 mmol/L (136-145) 11/19/17 07:01 Potassium 3.7 mmol/L (3.5-5.1) 11/19/17 07:01 Chloride 108 mmol/L (98-107) H 11/19/17 07:01 Carbon Dioxide 23 mmol/L (21-32) 11/19/17 07:01 Anion Gap 6 (8-16) L 11/19/17 07:01 BUN 5 mg/dL (7-18) L 11/19/17 07:01 Creatinine 0.6 mg/dL (0.55-1.02) 11/19/17 07:01 Creat Clearance w eGFR > 60 (>60) 11/19/17 07:01 Random Glucose 78 mg/dL (74-106) 11/19/17 07:01 Calcium 7.9 mg/dL (8.5-10.1) L 11/19/17 07:01 Total Bilirubin 0.5 mg/dL (0.2-1.0) 11/18/17 06:49 AST 14 U/L (15-37) L 11/18/17 06:49 ALT 13 U/L (12-78) 11/18/17 06:49 Alkaline Phosphatase 45 U/L (45-117) 11/18/17 06:49 Total Protein 6.7 g/dl (6.4-8.2) 11/18/17 06:49 Albumin 2.6 g/dl (3.4-5.0) L 11/18/17 06:49 Current Medications Generic Name Dose Route Start Last Admin Trade Name Freq PRN Reason Stop Dose Admin Acetaminophen 650 mg 11/18/17 16:28 Tylenol - PO Q4H PRN FEVER Doxycycline Hyclate 100 mg/ 100 mls @ 50 mls/hr 11/17/17 22:00 11/19/17 11:09 Dextrose IVPB 50 mls/hr BID ZOEY Administration Cefoxitin Sodium 2 gm/ 100 mls @ 200 mls/hr 11/18/17 15:00 11/19/17 20:19 Dextrose IVPB 200 mls/hr Q6H-IV ZOEY Administration Protocol Sodium Chloride 1,000 mls @ 42 mls/hr 11/18/17 17:27 11/18/17 18:22 Normal Saline - IV 42 mls/hr ASDIR ZOEY Administration Ibuprofen 400 mg 11/19/17 17:24 Caldolor Injection - IVPB Q6H PRN FEVER Lorazepam 0.5 mg 11/17/17 18:36 11/19/17 01:25 Ativan Injection - IVPUSH 0.5 mg BID PRN Administration ANXIETY Nicotine 14 mg 11/18/17 10:00 11/19/17 11:08 Nicoderm Patch - TD 14 mg DAILY ZOEY Administration Ondansetron HCl 4 mg 11/17/17 18:16 Zofran Injection IVPUSH Q6H PRN NAUSEA Pantoprazole Sodium 40 mg 11/19/17 10:00 11/19/17 11:24 Protonix - PO 40 mg DAILY ZOEY Administration Home Medications Medication Instructions Recorded NK [No Known Home Medication] 11/16/17 PE: per resident'snote ASSESSMENT AND PLAN: Patient is a 37yo female with no significant PMHx presented to ED. c/o having severe abdominal pain requiring IV morphine, CT of abdomen/pelvis positive for SBO , patient has no previous surgery. # POD #2 s/p diagnostic laparoscopy and abdominal washout for PID by on IV antibiotic Cefoxitin and Doxyxycline day #1 , waiting for culture copic Acute abdominal pain with cannot r/o PID, pelvic US ordered, discussed with the surgeon, and the radiologist , patient will be going to laporoscopic procedure to ID the cause of the severe abdominal pain. NPO,IVF, NGT for decompression. DISTRIBUTOR OF DIRECTORIES consult, # Hx of IUD placed around 3 months ago DVT PX: SCDs for now. OFF DRY WALL FINISHER pump today
[2017-11-19] MEDS ORDERED: PT OWN MED DRAWER 7, Y5N ONE (22:43)
[2017-11-20] MEDS: ACETAMINOPHEN 325 MG TABLET (FP) PO PRN ×2 (00:41→08:36)
[2017-11-20] MEDS: LORazepam 2 MG/ML SDV VIAL IVPUSH PRN ×2 (00:42→12:39)
[2017-11-20] MEDS ORDERED: PT OWN MED DRAWER 7, Y5N ONE ×3 (02:48→09:57)
[2017-11-20] MEDS: CEFOXITIN SODIUM 2 GM in DEXTROSE 5%-WATER - 100 ML IVPB SCH ×4 (02:57→20:07)
[2017-11-20 07:56] LABS: BASO % 0.4 % (0-2.0); HEMATOCRIT 29.2 % (32.4-45.2); HEMOGLOBIN 9.7 GM/dL (10.7-15.3); LYMPH % 38.2 % (8-40); MCH 28.1 pg (25.7-33.7); MCHC 33.4 g/dl (32.0-36.0); MEAN CELL VOLUME 84.1 fl (80-96); MEAN PLT VOLUME 8.3 fl (7.5-11.1); NEUT % 47.4 % (42.8-82.8); PLATELET COUNT 238 K/MM3 (134-434); RBC 3.47 M/mm3 (3.60-5.2); RDW 15.1 % (11.6-15.6)
[2017-11-20 08:21] LABS: ANION GAP 6 (8-16); BLOOD UREA NITROGEN 6 mg/dL (7-18); CALCIUM 7.9 mg/dL (8.5-10.1); CHLORIDE 108 mmol/L (98-107); CO2 25 mmol/L (21-32); CREATININE 0.5 mg/dL (0.55-1.02); GLUCOSE,RANDOM 85 mg/dL (74-106); MAGNESIUM 1.4 mg/dL (1.8-2.4); PHOSPHOROUS 3.8 mg/dL (2.5-4.9); POTASSIUM 3.7 mmol/L (3.5-5.1); SODIUM 139 mmol/L (136-145)
--- NOTE | 2017-11-20 08:39 | PN ---
Teaching Attending Note Name of Resident: Carlie Andino ATTENDING PHYSICIAN STATEMENT I saw and evaluated the patient. I reviewed the resident's note and discussed the case with the resident. I agree with the resident's findings and plan as documented. SUBJECTIVE: Patient has no fever or chills, no shortness of breath. OBJECTIVE: Vital Signs Temperature 98.4 F 11/20/17 06:00 Pulse Rate 91 H 11/20/17 06:00 Respiratory Rate 18 11/20/17 06:00 Blood Pressure 122/74 11/20/17 06:00 O2 Sat by Pulse Oximetry (%) 100 11/19/17 21:00 Current Medications Generic Name Dose Route Start Last Admin Trade Name Freq PRN Reason Stop Dose Admin Acetaminophen 650 mg 11/18/17 16:28 11/20/17 08:36 Tylenol - PO 650 mg Q4H PRN Administration FEVER Doxycycline Hyclate 100 mg/ 100 mls @ 50 mls/hr 11/17/17 22:00 11/19/17 22:44 Dextrose IVPB 50 mls/hr BID ZOEY Administration Cefoxitin Sodium 2 gm/ 100 mls @ 200 mls/hr 11/18/17 15:00 11/20/17 08:36 Dextrose IVPB 200 mls/hr Q6H-IV ZOEY Administration Protocol Sodium Chloride 1,000 mls @ 42 mls/hr 11/18/17 17:27 11/18/17 18:22 Normal Saline - IV 42 mls/hr ASDIR ZOEY Administration Ibuprofen 400 mg 11/19/17 17:24 Caldolor Injection - IVPB Q6H PRN FEVER Lorazepam 0.5 mg 11/17/17 18:36 11/20/17 00:42 Ativan Injection - IVPUSH 0.5 mg BID PRN Administration ANXIETY Nicotine 14 mg 11/18/17 10:00 11/19/17 11:08 Nicoderm Patch - TD 14 mg DAILY ZOEY Administration Ondansetron HCl 4 mg 11/17/17 18:16 Zofran Injection IVPUSH Q6H PRN NAUSEA Pantoprazole Sodium 40 mg 11/19/17 10:00 11/19/17 11:24 Protonix - PO 40 mg DAILY ZOEY Administration CBCD WBC 5.0 K/mm3 (4.0-10.0) 11/20/17 06:50 RBC 3.47 M/mm3 (3.60-5.2) L 11/20/17 06:50 Hgb 9.7 GM/dL (10.7-15.3) L 11/20/17 06:50 Hct 29.2 % (32.4-45.2) L 11/20/17 06:50 MCV 84.1 fl (80-96) 11/20/17 06:50 MCHC 33.4 g/dl (32.0-36.0) 11/20/17 06:50 RDW 15.1 % (11.6-15.6) 11/20/17 06:50 Plt Count 238 K/MM3 (134-434) 11/20/17 06:50 MPV 8.3 fl (7.5-11.1) 11/20/17 06:50 CMP Sodium 139 mmol/L (136-145) 11/20/17 06:50 Potassium 3.7 mmol/L (3.5-5.1) 11/20/17 06:50 Chloride 108 mmol/L (98-107) H 11/20/17 06:50 Carbon Dioxide 25 mmol/L (21-32) 11/20/17 06:50 Anion Gap 6 (8-16) L 11/20/17 06:50 BUN 6 mg/dL (7-18) L 11/20/17 06:50 Creatinine 0.5 mg/dL (0.55-1.02) L 11/20/17 06:50 Creat Clearance w eGFR > 60 (>60) 11/20/17 06:50 Random Glucose 85 mg/dL (74-106) 11/20/17 06:50 Calcium 7.9 mg/dL (8.5-10.1) L 11/20/17 06:50 Total Bilirubin 0.5 mg/dL (0.2-1.0) 11/18/17 06:49 AST 14 U/L (15-37) L 11/18/17 06:49 ALT 13 U/L (12-78) 11/18/17 06:49 Alkaline Phosphatase 45 U/L (45-117) 11/18/17 06:49 Total Protein 6.7 g/dl (6.4-8.2) 11/18/17 06:49 Albumin 2.6 g/dl (3.4-5.0) L 11/18/17 06:49 Home Medications Medication Instructions Recorded NK [No Known Home Medication] 11/16/17 PE: per residentls note ASSESSMENT AND PLAN: Patient is a 37yo female with no significant PMHx presented to ED. c/o having severe abdominal pain requiring IV morphine, CT of abdomen/pelvis positive for SBO , patient has no previous surgery. # POD #3 s/p diagnostic laparoscopy and abdominal washout for PID by on IV antibiotic Cefoxitin and Doxyxycline day #3 , waiting for culture . TAPE MAKER consult, .cultures peritneal fluid pending , gc/ct culture pending. HIV is neagtive, rpr is negative, once culture result is available canbe switched to oral chavo and be discharged. # Hx of IUD placed around 3 months ago. as per TAPE MAKER no need for removal for now DVT PX: SCDs for now.
[2017-11-20] MEDS: PANTOPRAZOLE 40 MG TABLET (FP) PO SCH (09:12)
[2017-11-20] MEDS: IBUPROFEN 800 MG/8 ML IJ IVPB PRN ×2 (09:13→22:45)
[2017-11-20] MEDS: NICOTINE 14 MG/24 HOURS TOPICAL PATCH TD SCH (09:13)
[2017-11-20] MEDS: DOXYCYCLINE INJECTION 100 MG in DEXTROSE 5%-WATER - 100 ML IVPB SCH (09:59)
--- NOTE | 2017-11-20 11:01 | PN ---
Progress Note, Physician Chief Complaint: sbo History of Present Illness: 37yo no significant PMH BIBEMS with complaints of severe abdominal pain that started 3 days ago. She initially thought that he menstruation was starting ( LMP ~1 month ago) but the pain gradually became worse and was focal to her epigastrium. CT scan shows SBO with transition in LUQ mid abdomen and complex ascites in the pelvis and an adnexal cyst. no acute issue overnight. - Current Medication List Current Medications: Active Medications Acetaminophen (Tylenol -) 650 mg PO Q4H PRN PRN Reason: FEVER Last Admin: 11/20/17 08:36 Dose: 650 mg Doxycycline Hyclate 100 mg/ (Dextrose) 100 mls @ 50 mls/hr IVPB BID ZOEY Last Admin: 11/20/17 09:59 Dose: 50 mls/hr Cefoxitin Sodium 2 gm/ (Dextrose) 100 mls @ 200 mls/hr IVPB Q6H-IV ZOEY; Protocol Last Admin: 11/20/17 08:36 Dose: 200 mls/hr Sodium Chloride (Normal Saline -) 1,000 mls @ 42 mls/hr IV ASDIR ZOEY Last Admin: 11/18/17 18:22 Dose: 42 mls/hr Ibuprofen (Caldolor Injection -) 400 mg IVPB Q6H PRN PRN Reason: FEVER Last Admin: 11/20/17 09:13 Dose: 400 mg Lorazepam (Ativan Injection -) 0.5 mg IVPUSH BID PRN PRN Reason: ANXIETY Last Admin: 11/20/17 00:42 Dose: 0.5 mg Nicotine (Nicoderm Patch -) 14 mg TD DAILY ZOEY Last Admin: 11/20/17 09:13 Dose: 14 mg Ondansetron HCl (Zofran Injection) 4 mg IVPUSH Q6H PRN PRN Reason: NAUSEA Pantoprazole Sodium (Protonix -) 40 mg PO DAILY ZOEY Last Admin: 11/20/17 09:12 Dose: 40 mg - Objective Vital Signs: Vital Signs Temperature 97.9 F 11/20/17 10:00 Pulse Rate 85 11/20/17 10:00 Respiratory Rate 20 11/20/17 10:00 Blood Pressure 118/68 11/20/17 10:00 O2 Sat by Pulse Oximetry (%) 100 11/19/17 21:00 Vital Signs Period Temp Pulse Resp BP Sys/Gutiérrez Pulse Ox Last 24 Hr 97.8 F-98.4 F 76-91 18-20 109-128/63-74 100-100 Intake & Output 11/19/17 11/20/17 11/20/17 23:59 07:59 15:59 Intake Total 1018 552 180 Output Total 350 Balance 668 552 180 Intake: IV 668 252 Normal Saline - 1,000 ml 668 252 @ 42 mls/hr IV ASDIR ZOEY Rx#:[id number] IVPB 150 100 Oral 200 200 180 Output: Urine 350 Void 350 Other: Voiding Method Toilet Toilet # Unmeasured Voids Void 2 2 Constitutional: Yes: Well Nourished, No Distress Eyes: Yes: Conjunctiva Clear, EOM Intact HENT: Yes: Atraumatic, Normocephalic Neck: Yes: Supple, Trachea Midline Cardiovascular: Yes: Regular Rate and Rhythm, S1, S2 Respiratory: Yes: Regular, CTA Bilaterally Gastrointestinal: Yes: Normal Bowel Sounds, Soft, Distention, Tenderness ( perumbilical). No: Ascites, Tenderness, Epigastrium, Tenderness, Rebound, Vomiting ...Rectal Exam: Yes: Deferred Genitourinary: No: CVA Tenderness - Left, CVA Tenderness - Right Extremities: No: Cool, Cyanosis Edema: No Peripheral Pulses WNL: Yes Wound/Incision: Yes: Clean/Dry, Well Approximated, Open to air Neurological: Yes: Alert, Oriented Psychiatric: Yes: Alert, Oriented Labs: CBC, BMP 11/20/17 06:50 11/20/17 06:50 INR, PTT INR 1.21 (0.82-1.09) H 11/17/17 07:15 Problem List - Problems (1) Pelvic inflammatory disease (PID) Assessment/Plan: 37yo female no significant PMH with abdominal pain, SBO with transition point on CTscan. No previous surgery. Unable to rectify possible adnexal pathology with SBO. POD#4 s/p diagnostic laparoscopy and abdominal washout for PID with associated ileus tolerating PO. uncertain of BM and flatus. management per primary team diet as tolerated continue IV antibiotics base don cultures adequate analgesia early ambulation will follow peripherally She does not require surgical follow up with general surgery upon discharge Code(s): N73.9 - FEMALE PELVIC INFLAMMATORY DISEASE, UNSPECIFIED (2) Small bowel obstruction Code(s): K56.609 - UNSP INTESTNL OBST, UNSP TO PARTIAL VERSUS COMPLETE OBST (3) Abdominal pain in female Code(s): R10.9 - UNSPECIFIED ABDOMINAL PAIN (4) IUD (intrauterine device) in place Code(s): Z97.5 - PRESENCE OF (INTRAUTERINE) CONTRACEPTIVE DEVICE (5) Vomiting Code(s): R11.10 - VOMITING, UNSPECIFIED Qualifiers: Vomiting type: bilious vomiting Nausea presence: with nausea Qualified Code(s): R11.14 - Bilious vomiting (6) Peritoneal fluid Code(s): R18.8 - OTHER ASCITES Qualifiers: Ascites type: other type Qualified Code(s): R18.8 - Other ascites
[2017-11-20] MEDS ORDERED: MAGNESIUM SULF 50% (8.12 MEQ/2 ML-1 GM VIAL) IVPB ONE (11:04)
--- NOTE | 2017-11-20 14:41 | PN ---
Physical Exam: SUBJECTIVE: Patient seen and examined at bedside. Overnight, pt received Tylenol 650mg PO x 1 for pain. Experienced burning with IV caldor as per nurse. Today, pt states that she has abdominal pain. Denies NELSON, fever, chills, SOB, or changes in urinary or bowel function. Has been OOB ambulating. OBJECTIVE: Vital Signs Period Temp Pulse Resp BP Sys/Gutiérrez Pulse Ox Last 24 Hr 97.8 F-98.4 F 76-91 18-20 109-128/63-74 100-100 GENERAL: The patient is well-groomed. awake, alert, and fully oriented, in no acute distress. HEAD: Normal with no signs of trauma. EYES: PERRL, extraocular movements intact, sclera anicteric, conjunctiva clear. ENT: Ears normal, nares patent, oropharynx clear without exudates, moist mucous membranes. NECK: Trachea midline, supple. LUNGS: Breath sounds equal, clear to auscultation bilaterally, no wheezes, no crackles, no accessory muscle use. +poor inspiratory effort HEART: Regular rate and rhythm, S1, S2 without murmur, rub or gallop. ABDOMEN: Soft, +diffusely tender, nondistended, normoactive bowel sounds, no guarding. +painful blistersx2 under binder EXTREMITIES: 2+ pt pulses, warm, well-perfused, no edema. NEUROLOGICAL: Cranial nerves II through XII grossly intact. PSYCH: Normal mood, normal affect. SKIN: Warm, dry, normal turgor Laboratory Results - last 24 hr 11/20/17 11/20/17 06:50 06:50 WBC 5.0 RBC 3.47 L Hgb 9.7 L Hct 29.2 L MCV 84.1 MCH 28.1 MCHC 33.4 RDW 15.1 Plt Count 238 MPV 8.3 Absolute Neuts (auto) 2.4 Neutrophils % 47.4 D Lymphocytes % 38.2 D Monocytes % 10.0 Eosinophils % 4.0 Basophils % 0.4 Nucleated RBC % 0 Sodium 139 Potassium 3.7 Chloride 108 H Carbon Dioxide 25 Anion Gap 6 L BUN 6 L Creatinine 0.5 L Creat Clearance w eGFR > 60 Random Glucose 85 Calcium 7.9 L Phosphorus 3.8 Magnesium 1.4 L Additional testing 11/17/17 11/18/17 11/19/17 14:55 06:00 09:00 RPR Titer Nonreactive C. trachomatis (SILVINO) Pending HIV 1&2 Antibody Screen Negative HIV P24 Antigen Negative N. gonorrhoeae (SILVINO) Pending Active Medications Generic Name Dose Route Start Last Admin Trade Name Freq PRN Reason Stop Dose Admin Acetaminophen 650 mg 11/18/17 16:28 11/20/17 08:36 Tylenol - PO 650 mg Q4H PRN Administration FEVER Doxycycline Hyclate 100 mg 11/20/17 18:00 Vibramycin - PO BID@1000,1800 ZOEY Cefoxitin Sodium 2 gm/ 100 mls @ 200 mls/hr 11/18/17 15:00 11/20/17 08:36 Dextrose IVPB 200 mls/hr Q6H-IV ZOEY Administration Protocol Sodium Chloride 1,000 mls @ 42 mls/hr 11/18/17 17:27 11/18/17 18:22 Normal Saline - IV 42 mls/hr ASDIR ZOEY Administration Ibuprofen 400 mg 11/19/17 17:24 11/20/17 09:13 Caldolor Injection - IVPB 400 mg Q6H PRN Administration FEVER Lorazepam 0.5 mg 11/17/17 18:36 11/20/17 12:39 Ativan Injection - IVPUSH 0.5 mg BID PRN Administration ANXIETY Nicotine 14 mg 11/18/17 10:00 11/20/17 09:13 Nicoderm Patch - TD 14 mg DAILY ZOEY Administration Ondansetron HCl 4 mg 11/17/17 18:16 Zofran Injection IVPUSH Q6H PRN NAUSEA Pantoprazole Sodium 40 mg 11/19/17 10:00 11/20/17 09:12 Protonix - PO 40 mg DAILY ZOEY Administration IMAGING 11/17/17: CTAP w/contrast: moderate to marked dilatation of the small bowel loops in the abdomen and pelvis consistent with distal SBO. terminal ileum is not definitely identified. the appendix is not seen. normal size proximal jejunal loops are present. mesenteric stranding in the R and to a lesser extent L flank which is of uncertain etiology may be due to peritonitis. no adjacent colonic wall thickening is present to suggest colitis. correlate clinically. moderate to large amount of free fluid/ascites in the lower abdomen/pelvis and to a lesser extent in both flanks and left upper abdomen measuring 22 [place] units compatible with fluid. IUD in satisfactory position. likely partially ruptured R and L ovarian follicle. 11/17/17: TVUS: the uterus appears unremarkable with IUD in place. both ovaries were not visualized. there is a significant amount of free fluid in the pelvis with echoes and debris on some of the images suggestive of complex fluid. r/o hemorrhagic fluid. 11/17/17: CXR: NGT tip seen in LUQ/stomach. 11/18/17: Abdomen flat and upright: increasing small bowel distension with air fluid levels. appearance more of a small bowel or partial SBO than an ileus. free air not seen. iud present. lung bases well aerated. still retained stool in colon 11/19/17: Abdomen flat and upright: persistent small bowel obstruction. IUD. Retained colonic stool. Microbiology 11/17/17 16:00 Abdomen Gram Stain - Final 11/17/17 16:00 Abdomen Wound Culture - Final NO GROWTH AFTER 48 HOURS INCUBATION 11/18/17 10:35 Blood - Peripheral Venous Blood Culture - Preliminary NO GROWTH OBTAINED AFTER 48 HOURS, INCUBATION TO CONTINUE FOR 3 DAYS. 11/18/17 10:25 Blood - Peripheral Venous Blood Culture - Preliminary NO GROWTH OBTAINED AFTER 48 HOURS, INCUBATION TO CONTINUE FOR 3 DAYS. ASSESSMENT/PLAN: 37 y/o F w/ no PMH presents to the ER with nausea, vomiting, epigastric pain x 2 days. Admitted for SBO. #?Acute pelvic inflammatory disease (PID) -possible pt also with intestinal inflammation, adhesions, causing uterine and adnexal inflamm -s/p dx laparoscopy, abdominal washout (PO Day3) -continue doxycycline 100mg PO BID (changed from IV), cefoxitin 2gm IVPB q6h ( Day3) -PICKING SUPERVISOR pump has been d/c, control with tylenol 650mg PO q4h PRN as per anesthesiology -blood cx, abdominal gram stain, wound cx (-) -RPR nonreactive. f/u c.tracho, gono testing- still pending. d/w lab it is a send out will take time -HIV (-) -no further surgical intervention at this time -incentive spirometer -zofran 4 mg iv q6h prn for nausea -surgery: Dr. Rhodes -environmental field services technician: Dr. Barahona -ID: Dr. Joseph #Nicotine dependance -continue Nicotine Patch 14 mg TD qd #Hypomagnesemia -level 1.4 today -repleted with mg sulfate 1gm IVPB x 1 -continue to follow #PPX DVT: SCDs, EAM #F/E/N -NS @ 42 mls/hr; KVO -continue to follow lytes -vegetarian diet; tolerating PO well. #Dispo continued monitoring on med-surg Visit type - Emergency Visit Emergency Visit: No - New Patient This patient is new to me today: No - Critical Care Critical Care patient: No
--- NOTE | 2017-11-20 16:41 | PATH ---
Cytology Non-Gynecological Report Patient Name: SHITAL SHOEMAKER [facility]. Rec. #: [id number] /Age/Gender: 1980 (Age: 37) / F Account: [id number] Location: [facility] MED/SURG Taken: 11/17/2017 Received: 11/19/2017 Reported: 11/20/2017 Physicians: Mitra Barton M.D. Specimen(s) Received PERITONEAL FLUID Clinical History Ascites Final Diagnosis ABDOMINAL FLUID, PARACENTESIS: SATISFACTORY FOR EVALUATION NO MALIGNANT CELLS IDENTIFIED. INFLAMMATORY CELLS INCLUDING NEUTROPHILS, MACROPHAGES, AND MESOTHELIAL CELLS PRESENT. Electronically Signed Cheryl Brown M.D. Gross Description Approximately 25cc of yellow fluid received fixed in 50% alcohol. Two cytofunnels and one cellblock prepared.
[2017-11-20] MEDS ORDERED: DOXYCYCLINE HYCLATE 100 MG CAPSULE PO SCH (18:00)
[2017-11-20] MEDS: SODIUM CHLORIDE 1,000 ML IV SCH (18:22)
--- NOTE | 2017-11-20 20:28 | PN ---
Teaching Attending Note Name of Resident: Carlie Andino ATTENDING PHYSICIAN STATEMENT I saw and evaluated the patient. I reviewed the resident's note and discussed the case with the resident. I agree with the resident's findings and plan as documented. SUBJECTIVE: OBJECTIVE: Vital Signs Temperature 97.7 F 11/20/17 18:00 Pulse Rate 90 11/20/17 18:00 Respiratory Rate 19 11/20/17 18:00 Blood Pressure 111/74 11/20/17 18:00 O2 Sat by Pulse Oximetry (%) 100 11/20/17 09:00 CBCD WBC 5.0 K/mm3 (4.0-10.0) 11/20/17 06:50 RBC 3.47 M/mm3 (3.60-5.2) L 11/20/17 06:50 Hgb 9.7 GM/dL (10.7-15.3) L 11/20/17 06:50 Hct 29.2 % (32.4-45.2) L 11/20/17 06:50 MCV 84.1 fl (80-96) 11/20/17 06:50 MCHC 33.4 g/dl (32.0-36.0) 11/20/17 06:50 RDW 15.1 % (11.6-15.6) 11/20/17 06:50 Plt Count 238 K/MM3 (134-434) 11/20/17 06:50 MPV 8.3 fl (7.5-11.1) 11/20/17 06:50 CMP Sodium 139 mmol/L (136-145) 11/20/17 06:50 Potassium 3.7 mmol/L (3.5-5.1) 11/20/17 06:50 Chloride 108 mmol/L (98-107) H 11/20/17 06:50 Carbon Dioxide 25 mmol/L (21-32) 11/20/17 06:50 Anion Gap 6 (8-16) L 11/20/17 06:50 BUN 6 mg/dL (7-18) L 11/20/17 06:50 Creatinine 0.5 mg/dL (0.55-1.02) L 11/20/17 06:50 Creat Clearance w eGFR > 60 (>60) 11/20/17 06:50 Random Glucose 85 mg/dL (74-106) 11/20/17 06:50 Calcium 7.9 mg/dL (8.5-10.1) L 11/20/17 06:50 Total Bilirubin 0.5 mg/dL (0.2-1.0) 11/18/17 06:49 AST 14 U/L (15-37) L 11/18/17 06:49 ALT 13 U/L (12-78) 11/18/17 06:49 Alkaline Phosphatase 45 U/L (45-117) 11/18/17 06:49 Total Protein 6.7 g/dl (6.4-8.2) 11/18/17 06:49 Albumin 2.6 g/dl (3.4-5.0) L 11/18/17 06:49 Current Medications Generic Name Dose Route Start Last Admin Trade Name Freq PRN Reason Stop Dose Admin Acetaminophen 650 mg 11/18/17 16:28 11/20/17 08:36 Tylenol - PO 650 mg Q4H PRN Administration FEVER Bisacodyl 10 mg 11/20/17 21:00 Dulcolax Suppository - RC 11/20/17 21:01 ONCE ONE Doxycycline Hyclate 100 mg 11/20/17 18:00 11/20/17 18:25 Vibramycin - PO 100 mg BID@1000,1800 ZOEY Administration Cefoxitin Sodium 2 gm/ 100 mls @ 200 mls/hr 11/18/17 15:00 11/20/17 20:07 Dextrose IVPB 200 mls/hr Q6H-IV ZOEY Administration Protocol Sodium Chloride 1,000 mls @ 42 mls/hr 11/18/17 17:27 11/20/17 18:22 Normal Saline - IV Not Given ASDIR ZOEY Ibuprofen 400 mg 11/19/17 17:24 11/20/17 09:13 Caldolor Injection - IVPB 400 mg Q6H PRN Administration FEVER Nicotine 14 mg 11/18/17 10:00 11/20/17 09:13 Nicoderm Patch - TD 14 mg DAILY ZOEY Administration Ondansetron HCl 4 mg 11/17/17 18:16 Zofran Injection IVPUSH Q6H PRN NAUSEA Pantoprazole Sodium 40 mg 11/19/17 10:00 11/20/17 09:12 Protonix - PO 40 mg DAILY ZOEY Administration Home Medications Medication Instructions Recorded NK [No Known Home Medication] 11/16/17 ASSESSMENT AND PLAN:
[2017-11-20] MEDS: BISACODYL 10 MG SUPP.RECT RC ONE ×2 (20:34→20:36)
[2017-11-21] MEDS: CEFOXITIN SODIUM 2 GM in DEXTROSE 5%-WATER - 100 ML IVPB SCH (03:42)
[2017-11-21 07:08] LABS: BASO % 0.6 % (0-2.0); HEMATOCRIT 30.5 % (32.4-45.2); HEMOGLOBIN 10.3 GM/dL (10.7-15.3); LYMPH % 40.1 % (8-40); MCH 28.5 pg (25.7-33.7); MCHC 33.7 g/dl (32.0-36.0); MEAN CELL VOLUME 84.5 fl (80-96); MEAN PLT VOLUME 8.2 fl (7.5-11.1); MONO % 8.6 % (3.8-10.2); NEUT % 46.7 % (42.8-82.8); PLATELET COUNT 252 K/MM3 (134-434); RBC 3.61 M/mm3 (3.60-5.2); WHITE BLOOD COUNT 4.5 K/mm3 (4.0-10.0)
--- NOTE | 2017-11-21 07:55 | PN ---
Progress Note (short form) - Note Progress Note: c/o pain less. she is tolerating food . bm done, passing flatus 'she wants to go home urine chlamydia positive ., gonorrhea neg Selected Entries 11/21/17 06:00 Temperature 97.7 F Temperature Oral Source Pulse Rate 75 Blood Pressure 104/66 afebrile , v/sstable . p/a soft, not distended, incision wound healing Skin blisters secondary to tape is noted discuss with her findings of laproscopy again , & positive chlamydia d/c iv antibiotics . though she is treated for chlamydia with doxycyclin I will give her po zithromax 1 gm before discharge pt knows IUD is in place , she made option not to remove , she will follow with her Server Systems Administrator MD in [place] she needs to repeat chlamydia testing to confirm complete treatment after 4 weeks please inform ID nurse , so HANNY can be informed for her partners can be treated pt can be discharged on PO augmentin 875 mg bid & flagyl 500 mg bid x 7 days to treat pid completely Laboratory Tests 11/21/17 06:30 WBC 4.5 RBC 3.61 Hgb 10.3 L Hct 30.5 L MCV 84.5 MCH 28.5 MCHC 33.7 RDW 15.0 Plt Count 252 MPV 8.2 Absolute Neuts (auto) 2.1 Neutrophils % 46.7 Lymphocytes % 40.1 H Monocytes % 8.6 Eosinophils % 4.0 Basophils % 0.6 Laboratory Tests 11/17/17 11/18/17 11/19/17 14:55 06:00 09:00 ESR C-Reactive Protein 2.6 H RPR Titer Nonreactive C. trachomatis (SILVINO) Positive H HIV 1&2 Antibody Screen HIV P24 Antigen N. gonorrhoeae (SILVINO) Negative 11/19/17 11/19/17 09:00 09:00 ESR 23 H C-Reactive Protein RPR Titer C. trachomatis (SILVINO) HIV 1&2 Antibody Screen Negative HIV P24 Antigen Negative N. gonorrhoeae (SILVINO) Problem List - Problems (1) Abdominal pain in female Code(s): R10.9 - UNSPECIFIED ABDOMINAL PAIN (2) IUD (intrauterine device) in place Code(s): Z97.5 - PRESENCE OF (INTRAUTERINE) CONTRACEPTIVE DEVICE (3) Small bowel obstruction Code(s): K56.609 - UNSP INTESTNL OBST, UNSP TO PARTIAL VERSUS COMPLETE OBST (4) Substance abuse Code(s): F19.10 - OTHER PSYCHOACTIVE SUBSTANCE ABUSE, UNCOMPLICATED (5) Acute PID (pelvic inflammatory disease) Code(s): N73.0 - ACUTE PARAMETRITIS AND PELVIC CELLULITIS (6) Peritonitis Code(s): K65.9 - PERITONITIS, UNSPECIFIED (7) Chlamydia infection Code(s): A74.9 - CHLAMYDIAL INFECTION, UNSPECIFIED
[2017-11-21] MEDS ORDERED: AZITHROMYCIN 500 MG TABLET PO ONE (08:03)
[2017-11-21 08:06] LABS: CHLORIDE 109 mmol/L (98-107); POTASSIUM 3.7 mmol/L (3.5-5.1); SODIUM 141 mmol/L (136-145)
[2017-11-21 08:25] LABS: ANION GAP 8 (8-16); BLOOD UREA NITROGEN 6 mg/dL (7-18); CO2 24 mmol/L (21-32); CREATININE 0.7 mg/dL (0.55-1.02); GLUCOSE,RANDOM 101 mg/dL (74-106); PHOSPHOROUS 3.3 mg/dL (2.5-4.9)
[2017-11-21] MEDS: ACETAMINOPHEN 325 MG TABLET (FP) PO PRN ×2 (08:50→13:21)
[2017-11-21] MEDS: PANTOPRAZOLE 40 MG TABLET (FP) PO SCH (10:01)
[2017-11-21] MEDS: NICOTINE 14 MG/24 HOURS TOPICAL PATCH TD SCH (10:03)
--- NOTE | 2017-11-21 12:01 | PN ---
Progress Note, Physician Chief Complaint: sbo History of Present Illness: 37yo no significant PMH BIBEMS with complaints of severe abdominal pain that started 3 days ago. She initially thought that he menstruation was starting ( LMP ~1 month ago) but the pain gradually became worse and was focal to her epigastrium. CT scan shows SBO with transition in LUQ mid abdomen and complex ascites in the pelvis and an adnexal cyst. no acute issue overnight. - Current Medication List Current Medications: Active Medications Acetaminophen (Tylenol -) 650 mg PO Q4H PRN PRN Reason: FEVER Last Admin: 11/21/17 08:50 Dose: 650 mg Sodium Chloride (Normal Saline -) 1,000 mls @ 42 mls/hr IV ASDIR [facility] Last Admin: 11/20/17 18:22 Dose: Not Given Ibuprofen (Caldolor Injection -) 400 mg IVPB Q6H PRN PRN Reason: FEVER Last Admin: 11/20/17 22:45 Dose: 400 mg Nicotine (Nicoderm Patch -) 14 mg TD DAILY [facility] Last Admin: 11/21/17 10:03 Dose: 14 mg Pantoprazole Sodium (Protonix -) 40 mg PO DAILY [facility] Last Admin: 11/21/17 10:01 Dose: 40 mg - Objective Vital Signs: Vital Signs Temperature 97.7 F 11/21/17 06:00 Pulse Rate 75 11/21/17 06:00 Respiratory Rate 18 11/21/17 06:00 Blood Pressure 104/66 11/21/17 06:00 O2 Sat by Pulse Oximetry (%) 100 11/20/17 21:00 Vital Signs Period Temp Pulse Resp BP Sys/Gutiérrez Pulse Ox Last 24 Hr 97.7 F-98.8 F 75-90 18-20 104-124/66-75 100 Intake & Output 11/20/17 11/21/17 11/21/17 23:59 07:59 15:59 Intake Total 1038 1200 Balance 1038 1200 Intake: IV 588 500 Normal Saline - 1,000 ml 588 500 @ 42 mls/hr IV ASDIR ZOEY Rx#:[id number] IVPB 450 500 Oral 200 Other: Voiding Method Toilet Bowel Movement Yes No # Bowel Movements 1 Constitutional: Yes: Well Nourished, No Distress, Calm Eyes: Yes: Conjunctiva Clear, EOM Intact HENT: Yes: Atraumatic, Normocephalic Neck: Yes: Supple, Trachea Midline Cardiovascular: Yes: Regular Rate and Rhythm, S1, S2 Respiratory: Yes: Regular, CTA Bilaterally Gastrointestinal: Yes: Normal Bowel Sounds, Soft. No: Distention ...Rectal Exam: Yes: Deferred Genitourinary: No: CVA Tenderness - Left, CVA Tenderness - Right Extremities: No: Cool, Cyanosis Edema: No Peripheral Pulses WNL: Yes Peripheral Pulses: Left Doralis Pedis: 2+, Right Dorsalis Pedis: 2+ Integumentary: No: Jaundice, Rash Wound/Incision: Yes: Clean/Dry, Well Approximated, Open to air Neurological: Yes: Alert, Oriented Psychiatric: Yes: Alert, Oriented Labs: CBC, BMP 11/21/17 06:30 11/21/17 06:30 INR, PTT INR 1.21 (0.82-1.09) H 11/17/17 07:15 c. trich - positive - ....Imaging X-ray: Report Reviewed, Image Reviewed (resolved SBO pattern) Problem List - Problems (1) Pelvic inflammatory disease (PID) Assessment/Plan: 37yo female no significant PMH with abdominal pain, SBO with transition point on CTscan. No previous surgery. Unable to rectify possible adnexal pathology with ileus which is resolving. POD#5 s/p diagnostic laparoscopy and abdominal washout for PID with associated ileus tolerating PO. having BM and flatus. management per primary team diet as tolerated continue IV antibiotics base don cultures adequate analgesia early ambulation will follow peripherally She does not require surgical follow up with general surgery upon discharge Code(s): N73.9 - FEMALE PELVIC INFLAMMATORY DISEASE, UNSPECIFIED (2) Small bowel obstruction Code(s): K56.609 - UNSP INTESTNL OBST, UNSP TO PARTIAL VERSUS COMPLETE OBST (3) Abdominal pain in female Code(s): R10.9 - UNSPECIFIED ABDOMINAL PAIN (4) IUD (intrauterine device) in place Code(s): Z97.5 - PRESENCE OF (INTRAUTERINE) CONTRACEPTIVE DEVICE (5) Vomiting Code(s): R11.10 - VOMITING, UNSPECIFIED Qualifiers: Vomiting type: bilious vomiting Nausea presence: with nausea Qualified Code(s): R11.14 - Bilious vomiting (6) Peritoneal fluid Code(s): R18.8 - OTHER ASCITES Qualifiers: Ascites type: other type Qualified Code(s): R18.8 - Other ascites
[2017-11-21 14:49] VITALS: BP 114/71; PULSE 72; TEMP 98.3
--- NOTE | 2017-11-21 14:56 | PN ---
Teaching Attending Note Name of Resident: Carlie Andino ATTENDING PHYSICIAN STATEMENT I saw and evaluated the patient. I reviewed the resident's note and discussed the case with the resident. I agree with the resident's findings and plan as documented. SUBJECTIVE: No fever or chills. has some abd pain , but walking, eating and able to do all er activities. No n/v . " scared of scarring " OBJECTIVE: NAD Cv : RRR Lungs: CTAb ABd: NL BS , soft, TTP in all quadrants . no rebound tenderness. small surgical wound with well healing appearance in umbilical area. Ext: no edema ASSESSMENT AND PLAN: 37 y/o lady who presented with abd pain and was found tohave SBo and PID due to chlamydia 1- SBO : KUB today shows improvement. having BM and tolerating her diet . cont to monitor 2- PId : + chlamydia . received one dose of azithro today , cont flagyl and Augmentin x 7 days f/u with SNAPPER ON instructed patient that partner needs to be treated, she stated he knew. will notify HANNY has IUD , to d/w SNAPPER ON removal 3- dc home . f/u with PCP and SNAPPER ON
--- NOTE | 2017-11-22 05:20 | DS ---
Physical Exam: SUBJECTIVE: Patient seen and examined at bedside. No acute events overnight. Today, pt states that she is feeling well and would like to go home. Denies NELSON, fever, chills, SOB, chest pain, or changes in urinary or bowel function. Has been OOB. OBJECTIVE: Vital Signs Period Temp Pulse Resp BP Sys/Gutiérrez Pulse Ox Last 24 Hr 97.7 F-98.3 F 72-75 18-20 95-114/54-71 100 PHYSICAL EXAM GENERAL: The patient is well-groomed. awake, alert, and fully oriented, in no acute distress. HEAD: Normal with no signs of trauma. EYES: PERRL, extraocular movements intact, sclera anicteric, conjunctiva clear. ENT: Ears normal, nares patent, oropharynx clear without exudates, moist mucous membranes. NECK: Trachea midline, supple. LUNGS: Breath sounds equal, clear to auscultation bilaterally, no wheezes, no crackles, no accessory muscle use. HEART: Regular rate and rhythm, S1, S2 without murmur, rub or gallop. ABDOMEN: Soft, nontender, nondistended, normoactive bowel sounds, no guarding. + blister x1 under binder EXTREMITIES: 2+ pt pulses, warm, well-perfused, no edema. NEUROLOGICAL: Cranial nerves II through XII grossly intact. PSYCH: Normal mood, normal affect. SKIN: Warm, dry, normal turgor LABS Laboratory Results - last 24 hr 11/17/17 11/21/17 11/21/17 14:55 06:30 06:30 WBC 4.5 RBC 3.61 Hgb 10.3 L Hct 30.5 L MCV 84.5 MCH 28.5 MCHC 33.7 RDW 15.0 Plt Count 252 MPV 8.2 Absolute Neuts (auto) 2.1 Neutrophils % 46.7 Lymphocytes % 40.1 H Monocytes % 8.6 Eosinophils % 4.0 Basophils % 0.6 Nucleated RBC % 0 Sodium 141 Potassium 3.7 Chloride 109 H Carbon Dioxide 24 Anion Gap 8 BUN 6 L Creatinine 0.7 Creat Clearance w eGFR > 60 Random Glucose 101 Calcium 8.0 L Phosphorus 3.3 Magnesium 2.0 C. trachomatis (SILVINO) Positive H N. gonorrhoeae (SILVINO) Negative CBC Trend 11/16/17 11/17/17 11/18/17 22:15 06:30 06:49 WBC 15.6 H 5.9 5.7 Hgb 12.8 10.1 L 9.7 L Hct 38.6 30.2 L D 29.3 L Plt Count 381 250 D 224 11/19/17 11/20/17 11/21/17 07:01 06:50 06:30 WBC 5.5 5.0 4.5 Hgb 9.8 L 9.7 L 10.3 L Hct 29.5 L 29.2 L 30.5 L Plt Count 245 238 252 Additional labs 11/18/17 11/19/17 11/19/17 06:00 09:00 09:00 ESR 23 H C-Reactive Protein 2.6 H RPR Titer Nonreactive HIV 1&2 Antibody Screen HIV P24 Antigen 11/19/17 09:00 RPR Titer HIV 1&2 Antibody Screen Negative HIV P24 Antigen Negative 11/17/17 14:55 C. trachomatis (SILVINO) Positive H Microbiology 11/17/17 16:00 Abdomen Gram Stain - Final 11/17/17 16:00 Abdomen Wound Culture - Final NO GROWTH AFTER 48 HOURS INCUBATION 11/18/17 10:35 Blood - Peripheral Venous Blood Culture - Preliminary NO GROWTH OBTAINED AFTER 72 HOURS, INCUBATION TO CONTINUE FOR 2 DAYS. 11/18/17 10:25 Blood - Peripheral Venous Blood Culture - Preliminary NO GROWTH OBTAINED AFTER 72 HOURS, INCUBATION TO CONTINUE FOR 2 DAYS. Imaging : CTAP w/ contrast: moderate to marked dilation of small bowel loops in abdomen and pelvis consistent with distal SBO. terminal ileum not identified. appendix not seen. normal size proximal jejunal loops present. mesenteric stranding in the right and lesser extent L flank - may be due to peritonitis. no adjacent colonic wall thickening is present to suggest colitis. moderate to large amount of free fluid/ascites in lower abdomen and pelvis and lesser extent in flanks and L upper abdomen measuring 22 Hounsfield units compatible with fluid. IUD satisfactory position. likely partially ruptured R and L ovarian follicle. : TVUS: uterus unremarkable, with IUD in place. significant free fluid in pelvis with echoes and debris suggesting complex fluid 11/17/17: Abd XR: small bowel obstruction. no free air. 11/17/17: CXR: NGT upper quadrant/stomach 11/18/17: AXR: SBO, no free air 11/19/17: AXR: persistent SBO, no free air. retained stool. IUD. 11/21/17: AXR: residual mild air distension of mid small bowel loops that has significantly imrpveod since the prior exam. no gross organomegaly or free air identified. HOSPITAL COURSE: Date of Admission:11/17/17 Date of Discharge: 11/22/17 Admit diagnosis: ?Acute PID 37 y/o F w/ no significant PMH who presented to the ED with nausea, vomiting, epigastric pain x 2 days. The pain at its worst was 10/10 with no radiation. a/ w numerous episodes of NBNB emesis. Pt also stated that her abd has become distended over this time. She had not passed gas or had a BM in 2 days. This is the first time pt had these symptoms. Pt had an elective at age 20 via d&c. Pt admitted for possible acute PID. While pt was managed on the floor, she was managed for the following and seen by manager of investigations, surgery and medicine teams: #?Acute pelvic inflammatory disease (PID) pt underwent dx laparoscopy, abdominal washout with surgery, which identified adhesions, and possible intestinal inflammation that may have caused uterine and adnexal tenderness. Pt findings may have been explained by pelvic inflamm dz (PID), thus she was started on doxycycline and cefoxitin. Pt completed three day course and is d/c on augmentin and flagyl. Concerning pain control, initially she was treated with OPERATIONS LABEL CLERK pump, then was transitioned to IV caldor, and PO tylenol. blood cx, abdominal gram stain, wound cx were (-) . She also underwent additional testing, and was found to be ( +) on NAAT for c.trachomatis. this was d/w patient and reported to dept of health by [facility] infection control. confirmed that report was sent on AM of discharge. RPR was negative, gono, and HIV negative. #SBO Pt tx with NGT decompression initially, bowel rest and eventual diet advancement. and sx improved during stay. this was confirmed through abdom XR. on d/c, pt able to ambulate freely, voiding well, passing flatus and stool without complaint. #Nicotine dependance -pt encouraged smoking cessation and to stop smoking marijuana. pt will f/u with her PCP in 1 wk , as well as obgyn. Will also give her referral to manager of investigations who saw her in the hospital (dr. davenport) for additional f/ u. Minutes to complete discharge: 45 Discharge Summary Reason For Visit: ASCITES,SMALL BOWEL OBSTRUCTION Condition: Improved - Instructions Diet, Activity, Other Instructions: You were in the hospital because you had nausea, vomiting, and pain in your abdomen. You were found to have a bowel obstruction. While you were in the hospital, you also had a surgery which showed that you may have pelvic inflammatory disease. This is an infection of the female genital tract. You were treated in the hospital with IV antibiotics, and will go home on antibiotics by mouth. You have chlamydia infection Your visit You were seen by the medicine, surgery, and manager of investigations teams Medications -You are being sent home on the following antibiotics: Augmentin 875 mg (one pill) twice a day & Flagyl 500 mg (one pill) twice a day for one week -You may alternate taking ibuprofen 400mg every six hours ( with food ) and Tylenol 500mg every six hours for your pain as needed. -Continue to stop smoking. It is important for your health. Stop smoking marijuana Follow-up Please follow-up with the following doctors: -Dr. Barahona - 1 week -Dr. Kendy Bernardo, your manager of investigations in [place] - 1 week . You can discuss with her whether your IUD will be removed. -Naomie Bland ([facility]) - on Sunday, 1:30PM your primary care provider. This appointment has been scheduled with your clinic. [phone] is the clinic number. If you develop shortness of breath, or chest pain please go to the hospital. We hope you feel better soon. Referrals: Kendy Bernardo MD [Other] - 1 Week Naomie Bland [Other] - 11/23/17 1:30 pm Marj Brooke MD [Staff Physician] - 1 Week Disposition: HOME - Home Medications Comprehensive Discharge Medication List: Ambulatory Orders Acetaminophen [Tylenol -] 500 mg PO Q6H PRN #28 tablet 11/21/17 Amoxicillin/Potassium Clav [Augmentin 875-125 Tablet] 1 each PO BID #14 tablet 11/21/17 Ibuprofen 400 mg PO Q6H PRN #28 tablet 11/21/17 metroNIDAZOLE [Flagyl -] 500 mg PO BID #14 tablet 11/21/17 This patient is new to me today: No Emergency Visit: No Critical Care patient: No - Discharge Referral Referred to [facility] No
== END 2017-11-21 17:28 | disposition home or self-care (01) | DRG 447 ==
LOC: JER 20:08 → JERBED 11-17 02:46 → J8W 11-17 04:10
PROVIDERS: ADMIT Internal Medicine; ATTEND Internal Medicine
PROC: 0D9670Z Drainage of Stomach with Drainage Device, Via Natural or Artificial Opening (ICD-10-PCS; 2017-11-17)
PROC: 0WJG4ZZ Inspection of Peritoneal Cavity, Percutaneous Endoscopic Approach (ICD-10-PCS; principal; 2017-11-17 16:30)
PROC: 3E1M38Z Irrigation of Peritoneal Cavity using Irrigating Substance, Percutaneous Approach (ICD-10-PCS; 2017-11-17 16:30)
DX: A56.11 Chlamydial female pelvic inflammatory disease (principal); K65.9 Peritonitis, unspecified; K56.609 Unspecified intestinal obstruction, unspecified as to partial versus complete obstruction; E83.42 Hypomagnesemia; K56.7 Ileus, unspecified; R18.8 Other ascites; E87.1 Hypo-osmolality and hyponatremia; Z97.5 Presence of (intrauterine) contraceptive device; F17.210 Nicotine dependence, cigarettes, uncomplicated; F14.10 Cocaine abuse, uncomplicated; F12.10 Cannabis abuse, uncomplicated
CPT/HCPCS: 36415; 71045-TC-FY; 74018-TC-FY; 74019-TC-FY; 74177-TC; 76830-TC; 80048; 80053; 80307; 81003; 81015; 83605; 83690; 83735; 84100; 84703; 85025; 85610; 85651; 86140; 86593; 86850; 86900; 86901; 87040; 87070; 87205; 87389; 87491; 87591; 88108; 88305-TC; 94010; 94760; 99283-25; J0131; J7030

== ENCOUNTER 2018-03-18 19:42 | Emergency (ER) | payer OTHER ==
--- NOTE | 2018-03-18 19:45 | PDOC ---
Rapid Medical Evaluation Time Seen by Provider: 03/18/18 19:44 Medical Evaluation: Allergies Allergy/AdvReac Type Severity Reaction Status Date / Time No Known Allergies Allergy Verified 11/16/17 21:41 03/18/18 19:44 I have performed a brief in-person evaluation of this patient. The patient presents with a chief complaint of:L foot pain s/p direct blow yesterday Pertinent physical exam findings:ecchymosis to dorsum of L foot I have ordered the following:xray The patient will proceed to the ED for further evaluation. Discharge Disposition - Diagnosis Foot contusion Qualifiers: Encounter type: initial encounter Laterality: left Qualified Code(s): S90.32XA - Contusion of left foot, initial encounter - Referrals - Patient Instructions - Post Discharge Activity
[2018-03-18 19:48] VITALS: BP 115/73; PULSE 111; TEMP 98.3; BMI 24.0
--- NOTE | 2018-03-18 21:28 | PDOC ---
History of Present Illness - General Chief Complaint: Injury Stated Complaint: INJURY TO TOE Time Seen by Provider: 03/18/18 19:44 - History of Present Illness Initial Comments: 03/18/18 21:26 37-year-old female without comorbidities presents for evaluation of left fourth toe pain after stubbing her toe into the doorjamb 2 nights ago. Motrin and self medicated with Percocet given to her by a friend Past History - Past Medical History Allergies/Adverse Reactions: Allergies Allergy/AdvReac Type Severity Reaction Status Date / Time No Known Allergies Allergy Verified 03/18/18 19:45 Home Medications: Ambulatory Orders NK [No Known Home Medication] 03/18/18 Anemia: No COPD: No - Suicide/Smoking/Psychosocial Hx Smoking History: Current every day smoker Have you smoked in the past 12 months: No Number of Cigarettes Smoked Daily: 20 Information on smoking cessation initiated: No 'Breaking Loose' booklet given: 11/17/17 Hx Alcohol Use: No Drug/Substance Use Hx: No Substance Use Type: None Review of Systems - Review of Systems Musculoskeletal: Yes: See HPI All Other Systems: Reviewed and Negative *Physical Exam - Vital Signs Last Vital Signs Temp Pulse Resp BP Pulse Ox 98.3 F 111 H 18 115/73 98 03/18/18 19:46 03/18/18 19:46 03/18/18 19:46 03/18/18 19:46 03/18/18 19:46 - Physical Exam Comments: 03/18/18 21:26 There is mild ecchymosis on the dorsum of the foot in the area of the fourth metatarsal. There is tenderness about the fourth proximal phalanx the remainder of the toes and feet are nontender. No gross sensorimotor deficits. Medical Decision Making - Medical Decision Making 03/18/18 21:27 Is an oblique fracture of the left fourth proximal phalanx [place] shoe weight- bear as tolerated with use of crutches Tylenol and Motrin for pain and follow- up in orthopedics discussed smoking cessation and bone healing *DC/Admit/Observation/Transfer Diagnosis at time of Disposition: Toe fracture, left Diagnosis at time of Disposition: (Ruled Out): Foot contusion - Discharge Dispostion Disposition: HOME Condition at time of disposition: Stable Decision to Admit order: No - Referrals Referrals: Cullen Moore MD [Staff Physician] - - Patient Instructions Printed Discharge Instructions: Toe Fracture, DI for Toe Fracture Additional Instructions: Weight-bear as tolerated with use of the hard sole shoe and crutches. Continue to alternate Tylenol and Motrin for pain as directed return to the emergency room should symptoms worsen ago unresolved. Follow-up with orthopedic surgery in 2-3 days for further evaluation and treatment options. - Post Discharge Activity
== END 2018-03-18 21:38 | disposition home or self-care (01) ==
LOC: JERFT 19:42
DX: S92.515A Nondisplaced fracture of proximal phalanx of left lesser toe(s), initial encounter for closed fracture (principal); W22.8XXA Striking against or struck by other objects, initial encounter; Y93.01 Activity, walking, marching and hiking; Y92.038 Other place in apartment as the place of occurrence of the external cause; Y99.8 Other external cause status
CPT/HCPCS: 73630-TC-LT; 99281-25

== ENCOUNTER 2018-03-19 16:50 | Emergency (ER) | payer OTHER ==
[2018-03-19 16:58] VITALS: BP 112/64; PULSE 92; TEMP 98.2; BMI 24.0
--- NOTE | 2018-03-19 17:45 | PDOC ---
History of Present Illness - General Chief Complaint: Pain Stated Complaint: REVISIT TOE INJURY Time Seen by Provider: 03/19/18 17:12 History Source: Patient Exam Limitations: No Limitations - History of Present Illness Initial Comments: 03/19/18 17:40 37 yr female with c/o pain to the left foot injured it yesterday was seen in ER states she may have slept walked and re-injured the foot. Lower Ext. Injury Location - Specific Injury Location Foot: left foot other (tender to base of 4th toe with bruising noted) Past History - Past Medical History Allergies/Adverse Reactions: Allergies Allergy/AdvReac Type Severity Reaction Status Date / Time No Known Allergies Allergy Verified 03/19/18 16:51 Home Medications: Ambulatory Orders NK [No Known Home Medication] 03/18/18 Anemia: No COPD: No Psychiatric Problems: Yes (DEPRESSION,ANXIETY) - Suicide/Smoking/Psychosocial Hx Smoking History: Current every day smoker Have you smoked in the past 12 months: No Number of Cigarettes Smoked Daily: 20 Information on smoking cessation initiated: No 'Breaking Loose' booklet given: 11/17/17 Hx Alcohol Use: No Drug/Substance Use Hx: No Substance Use Type: None Review of Systems - Review of Systems Able to Perform ROS?: Yes Is the patient limited Mexican proficient: No Constitutional: No: Symptoms Reported HEENTM: No: Symptoms Reported Respiratory: No: Symptoms reported Cardiac (ROS): No: Symptoms Reported ABD/GI: No: Symptoms Reported : No: Symptoms Reported Musculoskeletal: Yes: Symptoms Reported *Physical Exam - Vital Signs Last Vital Signs Temp Pulse Resp BP Pulse Ox 98.2 F 92 H 18 112/64 99 03/19/18 16:51 03/19/18 16:51 03/19/18 16:51 03/19/18 16:51 03/19/18 16:51 - Physical Exam General Appearance: Yes: Nourished, Appropriately Dressed HEENT: positive: EOMI, MANASA Neck: positive: Supple. negative: Tender Extremity: positive: Normal Capillary Refill, Tender, Swelling (left foot TTP base of fourth toe ) Integumentary: positive: Normal Color, Dry, Warm Neurologic: positive: Fully Oriented, Alert, Normal Mood/Affect, Normal Response , Motor Strength 5/5 ED Treatment Course - RADIOLOGY Radiology Studies Ordered: Category Date Time Status FOOT-LEFT [RAD] Stat Radiology 03/19/18 17:39 Ordered Radiograph Interpretation: 03/19/18 18:25 fracture 4th toe , old from last night no new fractures Medical Decision Making - Medical Decision Making 03/19/18 17:46 cc: foot pain , dx with 4th toe fracture yesterday, pt thinks she may have re- injured it last night during sleep walking, is requesting another xray to make sure will get xray pt has been ambulating with crutches 03/19/18 17:46 *DC/Admit/Observation/Transfer Diagnosis at time of Disposition: Foot pain, left - Discharge Dispostion Disposition: HOME Condition at time of disposition: Good - Referrals Referrals: Pratik Hanson MD [Staff Physician] - - Patient Instructions Additional Instructions: keep the foot wrapped with mahendra wrap and bulky socks at bedtime, use the shoe during the day call the meter inspector for follow up elevate and apply ice every 2hrs for 20 minutes - Post Discharge Activity
== END 2018-03-19 18:32 | disposition home or self-care (01) ==
LOC: JERFT 16:50
DX: S92.515D Nondisplaced fracture of proximal phalanx of left lesser toe(s), subsequent encounter for fracture with routine healing (principal); W22.8XXD Striking against or struck by other objects, subsequent encounter; Y93.01 Activity, walking, marching and hiking; Y92.038 Other place in apartment as the place of occurrence of the external cause; Y99.8 Other external cause status
CPT/HCPCS: 73630-TC-LT; 99281-25

== ENCOUNTER 2018-03-26 03:28 | Emergency (ER) | payer OTHER ==
[2018-03-26] MEDS ORDERED: ACETAMINOPHEN 325 MG TABLET (FP) PO ONE (03:41)
[2018-03-26] MEDS ORDERED: LIDOCAINE 2.5%/PRILOCAINE 2.5% (5 Gram/TUBE) TP ONE ×3 (03:41→03:47)
[2018-03-26] MEDS ORDERED: IBUPROFEN 600 MG TABLET (FP) PO ONE ×2 (03:41→03:48)
[2018-03-26] MEDS ORDERED: ACETAMINOPHEN 325 MG TABLET (FP) ONE (03:47)
--- NOTE | 2018-03-26 03:50 | PDOC ---
History of Present Illness - General Stated Complaint: L FINGER LAC Time Seen by Provider: 03/26/18 03:41 History Source: Patient Exam Limitations: No Limitations - History of Present Illness Initial Comments: 03/26/18 03:46 Patient is a 37F with no significant medical history here today complaining of a laceration to her left finger just prior to arrival to the ED. Finger was cut on a knife. Sensation intact. Last tetanus 1 year ago. LMP 1 week ago. Past History - Past Medical History Allergies/Adverse Reactions: Allergies Allergy/AdvReac Type Severity Reaction Status Date / Time No Known Allergies Allergy Verified 03/26/18 04:06 Home Medications: Ambulatory Orders NK [No Known Home Medication] 03/18/18 Anemia: No COPD: No Psychiatric Problems: Yes (DEPRESSION,ANXIETY) - Suicide/Smoking/Psychosocial Hx Smoking History: Current every day smoker Have you smoked in the past 12 months: No Number of Cigarettes Smoked Daily: 20 'Breaking Loose' booklet given: 11/17/17 Hx Alcohol Use: No Drug/Substance Use Hx: No Substance Use Type: None Review of Systems - Review of Systems Comments:: 03/26/18 03:51 GENERAL/CONSTITUTIONAL: No fever or chills. No weakness. HEAD, EYES, EARS, NOSE AND THROAT: No change in vision. No sore throat. CARDIOVASCULAR: No chest pain or shortness of breath RESPIRATORY: No cough, wheezing, or hemoptysis. GASTROINTESTINAL: No nausea, vomiting, diarrhea or constipation. GENITOURINARY: No dysuria, frequency, or change in urination. MUSCULOSKELETAL: No joint or muscle swelling or pain. No neck or back pain. SKIN: No rash NEUROLOGIC: No headache, vertigo, loss of consciousness, or change in strength/ sensation. *Physical Exam - Physical Exam Comments: 03/26/18 03:52 L INDEX FINGER: Neurovascularly intact. Small linear laceration, shallow. GENERAL: Awake, alert, and fully oriented, in no acute distress HEAD: No signs of trauma, normocephalic, atraumatic EYES: PERRLA, EOMI, sclera anicteric, conjunctiva clear ENT: Auricles normal inspection, hearing grossly normal, nares patent, oropharynx clear without exudates. Moist mucosa NECK: Normal ROM, supple, no lymphadenopathy, JVD, or masses LUNGS: No distress, speaks full sentences, clear to auscultation bilaterally HEART: Regular rate and rhythm, normal S1 and S2, no murmurs, rubs or gallops, peripheral pulses normal and equal bilaterally. NEUROLOGICAL: Cranial nerves II through XII grossly intact. Normal speech, normal gait, no focal sensorimotor deficits SKIN: Warm, Dry, normal turgor, no rashes or lesions noted. Procedures - Laceration/Wound Repair Left 2nd digit Wound Length: to 2.5 cm Wound Explored: clean, no foreign body present Wound's Depth, Shape: superficial Irrigated w/ Saline: Yes Betadine Prep: No Anesthesia: LET Wound Repaired With: Dermabond Sterile Dressing Applied: Yes Medical Decision Making - Medical Decision Making 03/26/18 03:53 Patient is 37F with no significant history here today with finger laceration. Vitals normal and stable. Patient doesn't require sutures. Tetanus up to date. Given LET for anesthetic. Discharged home with return precautions. *DC/Admit/Observation/Transfer Diagnosis at time of Disposition: Laceration of left index finger - Discharge Dispostion Disposition: HOME Condition at time of disposition: Good Decision to Admit order: No - Referrals - Patient Instructions Printed Discharge Instructions: DI for Laceration Repair With Dermabond - Post Discharge Activity
[2018-03-26 04:06] VITALS: BP 124/87; PULSE 98; TEMP 98.2; BMI 23.8
--- NOTE | 2018-03-26 04:13 | PDOC ---
Attending Attestation - Resident Resident Name: Eduar Casey - ED Attending Attestation I have performed the following: I have examined & evaluated the patient, The case was reviewed & discussed with the resident, I agree w/resident's findings & plan - HPI HPI: 03/26/18 04:08 37 YOF with left finger tip laceration s/p cut by knife. tdap last year. no weakness or paresthesia or bleeding. - Physicial Exam PE: 03/26/18 04:08 General: anxious, crying Vascular: 2+ radialis pulses symmetric and equal. Neuro: distal bar examiner strength 5/5. sensation grossly intact in median/radial/ ulnar distribution. MSK: soft compartments, Cap refill <2 sec. 2+ radialis pulses bilaterally and symmetric. FDP/FDS intact. no joint tenderness. FROM. Skin: color normal color, warm and well perfused. +left distal index finger laceration on pulp, ~1cm, nonbleeding, nontender. very superficial - Medical Decision Making 03/26/18 04:09 37 YOF with left finger lac. tdap up to date vitals noted, HR in 90s 2/2 anxiety over superficial laceration. doubt infection , doubt tendon or bony injuries. motrin/tylenol for pain. topical emla for analgesia. dermabond for closure, area cleaned with water copiously. bandaid applied wound care instructions, keep area clean and dry DC in stable condition 03/26/18 04:13
== END 2018-03-26 04:10 | disposition home or self-care (01) ==
LOC: JER 03:28
PROC: 0HQGXZZ Repair Left Hand Skin, External Approach (ICD-10-PCS; principal; 2018-03-26)
DX: S61.211A Laceration without foreign body of left index finger without damage to nail, initial encounter (principal); W26.0XXA Contact with knife, initial encounter; Y93.89 Activity, other specified; Y92.89 Other specified places as the place of occurrence of the external cause; Y99.8 Other external cause status
CPT/HCPCS: 12001; 99281-25

== ENCOUNTER 2018-07-29 20:13 | Emergency (ER) | payer OTHER ==
[2018-07-29 20:21] VITALS: BP 104/65; PULSE 91; TEMP 98.1; BMI 27.0
--- NOTE | 2018-07-29 20:22 | PDOC ---
Rapid Medical Evaluation Chief Complaint: Pain Time Seen by Provider: 07/29/18 20:21 Medical Evaluation: Allergies Allergy/AdvReac Type Severity Reaction Status Date / Time No Known Allergies Allergy Verified 07/29/18 20:18 Vital Signs Temp Pulse Resp BP Pulse Ox 98.1 F 91 H 18 104/65 98 07/29/18 20:19 07/29/18 20:19 07/29/18 20:19 07/29/18 20:19 07/29/18 20:19 07/29/18 20:22 I have performed a brief in-person evaluation of this patient. The patient presents with a chief complaint of: right sided lower back pain Pertinent physical exam findings: No CVAT. I have ordered the following: urine The patient will proceed to the ED for further evaluation. Discharge Disposition - Diagnosis Lower back pain - Referrals - Patient Instructions - Post Discharge Activity
[2018-07-29 20:58] LABS: HCG,QUALITATIVE URINE Negative
[2018-07-29 21:02] LABS: URINE APPEARANCE SLCLOUDY; URINE BILIRUBIN NEGATIVE (<2.0 mg/dL); URINE COLOR YELLOW; URINE GLUCOSE (UA) NEGATIVE (NEGATIVE); URINE KETONE 1+ (NEGATIVE); URINE LEUK ESTERASE TRACE (NEGATIVE); URINE NITRITE NEGATIVE (NEGATIVE); URINE PROTEIN NEGATIVE (NEGATIVE); URINE UROBILINOGEN NEGATIVE mg/dL (0.2-1.0)
[2018-07-29 21:07] LABS: EPI CELLS RARE /HPF (FEW); URINE MUCUS FEW
--- NOTE | 2018-07-29 21:27 | PDOC ---
History of Present Illness - General Chief Complaint: Pain Stated Complaint: BACK PAIN Time Seen by Provider: 07/29/18 20:21 - History of Present Illness Initial Comments: 07/29/18 21:18 38-year-old female without comorbidities presents for evaluation of right-sided rib and back pain after a fall 3 days ago. She states she was coming out of the shower slipped over her cat and landed on her right side. No loss of consciousness or head injury. Today she self medicated with a friend's Percocet indicate 100 and Motrin which did not really help her pain. Past History - Past Medical History Allergies/Adverse Reactions: Allergies Allergy/AdvReac Type Severity Reaction Status Date / Time No Known Allergies Allergy Verified 07/29/18 20:18 Home Medications: Ambulatory Orders NK [No Known Home Medication] 03/18/18 Anemia: No COPD: No Psychiatric Problems: Yes (DEPRESSION,ANXIETY) - Suicide/Smoking/Psychosocial Hx Smoking History: Current every day smoker Have you smoked in the past 12 months: Yes Number of Cigarettes Smoked Daily: 10 Information on smoking cessation initiated: No 'Breaking Loose' booklet given: 11/17/17 Hx Alcohol Use: No Drug/Substance Use Hx: No Substance Use Type: None Review of Systems - Review of Systems : Yes: Flank Pain *Physical Exam - Vital Signs Last Vital Signs Temp Pulse Resp BP Pulse Ox 98.1 F 91 H 18 104/65 98 07/29/18 20:19 07/29/18 20:19 07/29/18 20:19 07/29/18 20:19 07/29/18 20:19 - Physical Exam Comments: 07/29/18 21:27 HEAD: NC/AT EYES: Conjuntiva clear Ears: Canals and TM's normal NOSE: No d/c THROAT: Moist mucous membrances, oral pharanx clear, uvula midline NECK: Supple without adenopathy CARDIAC: S1 S2 LUNGS: CTA Full and Equal breath sounds ABDOMEN: Soft NT ND MS: Full ROM in all joints without edema NEUROLOGIC: No gross sensory or motor deficits, NVID SKIN: Normal color and temperature no lesions or rashes There is right-sided rib tenderness which is out of proportion to the examination. She winces with light touch Moderate Sedation - Procedure Monitoring Vital Signs: Procedure Monitoring Vital Signs Temperature 98.1 F 07/29/18 20:19 Pulse Rate 91 H 07/29/18 20:19 Respiratory Rate 18 07/29/18 20:19 Blood Pressure 104/65 07/29/18 20:19 O2 Sat by Pulse Oximetry (%) 98 07/29/18 20:19 ED Treatment Course - ADDITIONAL ORDERS Additional order review: Laboratory Results 07/29/18 20:37 Urine Color Yellow Urine Appearance Slcloudy Urine pH 5.0 Ur Specific [place] 1.024 Urine Protein Negative Urine Glucose (UA) Negative Urine Ketones 1+ H Urine Blood 2+ H Urine Nitrite Negative Urine Bilirubin Negative Urine Urobilinogen Negative Ur Leukocyte Esterase Trace Urine WBC (Auto) 3 Urine RBC (Auto) 3 Ur Epithelial Cells Rare Urine Mucus Few Urine HCG, Qual Negative - RADIOLOGY Radiology Studies Ordered: Category Date Time Status CHEST PA & LAT [RAD] Stat Radiology 07/29/18 21:17 Ordered RIBS RIGHT SIDE [RAD] Stat Radiology 07/29/18 21:17 Ordered Medical Decision Making - Medical Decision Making 07/29/18 21:51 x-rays negative *DC/Admit/Observation/Transfer Diagnosis at time of Disposition: Lower back pain, Rib contusion - Discharge Dispostion Disposition: HOME Condition at time of disposition: Stable Decision to Admit order: No - Referrals Referrals: ON STAFF,NOT [Primary Care Provider] - - Patient Instructions Printed Discharge Instructions: DI for Rib Contusion Additional Instructions: Your x-rays today were negative. You may take Tylenol and Motrin as directed for pain. Return to the emergency room for severe symptoms. Follow-up with your internal medicine doctor in 1-2 days for further evaluation and treatment options. Return to the emergency room for worsening symptoms. - Post Discharge Activity
== END 2018-07-29 22:25 | disposition home or self-care (01) ==
LOC: JERFT 20:13
DX: S20.221A Contusion of right back wall of thorax, initial encounter (principal); W01.0XXA Fall on same level from slipping, tripping and stumbling without subsequent striking against object, initial encounter; Y93.89 Activity, other specified; Y92.031 Bathroom in apartment as the place of occurrence of the external cause; Y99.8 Other external cause status
CPT/HCPCS: 71046-TC-FY; 71101-TC-RT-FY; 81003; 81015; 84703; 87086; 99281-25

== ENCOUNTER 2019-07-05 21:22 | Emergency (ER) | payer OTHER ==
[2019-07-05 21:46] VITALS: BMI 24.5
--- NOTE | 2019-07-05 22:42 | PDOC ---
*Physical Exam - Vital Signs Last Vital Signs Temp Pulse Resp BP Pulse Ox 100.8 F H 101 H 19 96/71 100 07/05/19 21:42 07/05/19 21:42 07/05/19 21:42 07/05/19 21:42 07/05/19 21:42 Medical Decision Making - Medical Decision Making 07/05/19 22:42 Patient seen by the advanced practice provider under my supervision. Ancillary testing reviewed as necessary. I agree with plan as outlined by the advanced practice provider. Discharge - Discharge Information Problems reviewed: Yes Clinical Impression/Diagnosis: Influenza A Condition: Stable Disposition: HOME - Additional Discharge Information Prescriptions: Oseltamivir Phosphate [Tamiflu] 75 mg PO BID #5 capsule - Follow up/Referral Referrals: ON STAFF,NOT [Primary Care Provider] - - Patient Discharge Instructions Patient Printed Discharge Instructions: DI for Influenza -- Adult Additional Instructions: Your Discharge Instructions: You must call primary care physician within 24 hours to arrange follow-up. Return to the Emergency Department with any new, persistent or worsening symptoms, for fever, chills, SOB, dizziness or any other concerning changes that may occur. You must stay home from school treat your symptoms you may return when you are symptom-free. - Post Discharge Activity Work/Back to School Note: Back to Work
[2019-07-05] MEDS ORDERED: ACETAMINOPHEN 500 MG TABLET (FP) PO ONE (23:00)
[2019-07-05] MEDS ORDERED: ACETAMINOPHEN 325 MG TABLET (FP) ONE (23:03)
--- NOTE | 2019-07-05 23:12 | PDOC ---
History of Present Illness - General Chief Complaint: Cold Symptoms Stated Complaint: COLD SYMPTOMS Time Seen by Provider: 07/05/19 22:42 History Source: Patient Exam Limitations: No Limitations - History of Present Illness Initial Comments: 07/05/19 23:00 Patient is a 28 year old female with h/o chalazion, bowel surgery c/o fever, chills, body ache since last night which has worsened today. States she have chills last night, woke up this am with bodyache, fever, nasal congestion, runny nose. States she was exposed to someone in her class who had the flu. She thinks that she now has the flu. Took Motrin at 4-5 yours [employer]. Patient states she has an appointment on Sunday for excision of the chalazion. Also complains of right breast pain x2 weeks. States she discussed this with her primary care doctor and she has a referral to the breast clinic. LMP 1 year ago. Has Implant. PMD: Naomie Bland NP PMHX: as above PSOCHX: (+) cig 10/day, occ etoh, neg drug. ALL: NKDA GENERAL/CONSTITUTIONAL: [No fever or chills. No weakness. No weight change.] HEAD, EYES, EARS, NOSE AND THROAT: [No change in vision. No ear pain or discharge. No sore throat.] CARDIOVASCULAR: [No chest pain or shortness of breath.] RESPIRATORY: [No cough, wheezing, or hemoptysis.] GASTROINTESTINAL: [No nausea, vomiting, diarrhea or constipation. No rectal bleeding.] GENITOURINARY: [No dysuria, frequency, or change in urination.] MUSCULOSKELETAL: [No joint or muscle swelling or pain. No neck or back pain.] SKIN AND BREASTS: [No rash or easy bruising.] NEUROLOGIC: [No headache, vertigo, loss of consciousness, or loss of sensation.] PSYCHIATRIC: [No depression or anxiety.] ENDOCRINE: [No increased thirst. No abnormal weight change.] HEMATOLOGIC/LYMPHATIC: [No anemia, easy bleeding, or history of blood clots.] ALLERGIC/IMMUNOLOGIC: [No hives or skin allergy. No latex allergy.] GENERAL: [The patient is awake, alert, and fully oriented, in mild distress.] HEAD: [Normal with no signs of trauma.] EYES: [Pupils equal, round and reactive to light, extraocular movements intact, sclera anicteric, conjunctiva clear, (+) large swelling to the left upper lid.] ENT: [Ears normal, nares patent, oropharynx clear without exudates. Moist mucous membranes.] NECK: [Normal range of motion, supple without lymphadenopathy, JVD, or masses.] LUNGS: [Breath sounds equal, clear to auscultation bilaterally. No wheezes, and no crackles.] BREAST EXAM: Tender lump to the right breast lateral aspect no nipple discharge , no nodes HEART: [Regular rate and rhythm, normal S1 and S2 without murmur, rub.] ABDOMEN: [Soft, nontender, normoactive bowel sounds. No guarding, no rebound. No masses.] EXTREMITIES: [Normal range of motion, no edema. No clubbing or cyanosis. No cords, erythema, or tenderness.] NEUROLOGICAL: [Cranial nerves II through XII grossly intact. Normal speech, normal gait.] PSYCH: [Normal mood, normal affect.] SKIN: [Warm, Dry, normal turgor, no rashes or lesions noted.] Past History - Past Medical History Allergies/Adverse Reactions: Allergies Allergy/AdvReac Type Severity Reaction Status Date / Time No Known Allergies Allergy Verified 07/29/18 20:18 Home Medications: Ambulatory Orders Oseltamivir Phosphate [Tamiflu] 75 mg PO BID #5 capsule 07/06/19 Anemia: No COPD: No Psychiatric Problems: Yes (DEPRESSION,ANXIETY) - Psycho Social/Smoking Cessation Hx Smoking History: Current every day smoker Have you smoked in the past 12 months: Yes Number of Cigarettes Smoked Daily: 10 Information on smoking cessation initiated: No 'Breaking Loose' booklet given: 11/17/17 Hx Alcohol Use: No Drug/Substance Use Hx: No Substance Use Type: None *Physical Exam - Vital Signs Last Vital Signs Temp Pulse Resp BP Pulse Ox 100.8 F H 101 H 19 96/71 100 07/05/19 21:42 07/05/19 21:42 07/05/19 21:42 07/05/19 21:42 07/05/19 21:42 Medical Decision Making - Medical Decision Making 07/05/19 23:00 Patient is a 28 year old female with h/o chalazion, bowel surgery c/o fever, chills, body ache since last night which has worsened today. States she have chills last night, woke up this am with bodyache, fever, nasal congestion, runny nose. States she was exposed to someone in her class who had the flu. She thinks that she now has the flu. Took Motrin at 4-5 yours [employer]. Patient states she has an appointment on Sunday for excision of the chalazion. Also complains of right breast pain x2 weeks. States she discussed this with her primary care doctor and she has a referral to the breast clinic. Symptoms consistent with viral illness Flu test Right breast tenderness most likely fibrocystic Patient already scheduled by her primary care doctor for breast evaluation. Patient positive for Flu A Patient offered Tamiflu and is accepting of this treatment will initiate dose in the emergency room. Selected Entries 07/06/19 00:27 Temperature 100.0 F H Pulse Rate [ 89 Apical] Respiratory 19 Rate Blood Pressure 110/63 [Right Arm] O2 Sat by Pulse 99 Oximetry (%) I discussed the physical exam findings, ancillary test results and final diagnoses with the patient. I answered all of the patient's questions. The patient was satisfied with the care received and felt comfortable with the discharge plan and treatment plan. The Patient agrees to follow up with the primary care physician within 24-72 hours. Discharge - Discharge Information Problems reviewed: Yes Clinical Impression/Diagnosis: Influenza A Condition: Stable Disposition: HOME - Additional Discharge Information Prescriptions: Oseltamivir Phosphate [Tamiflu] 75 mg PO BID #5 capsule - Follow up/Referral Referrals: ON STAFF,NOT [Primary Care Provider] - - Patient Discharge Instructions Patient Printed Discharge Instructions: DI for Influenza -- Adult Additional Instructions: Your Discharge Instructions: You must call primary care physician within 24 hours to arrange follow-up. Return to the Emergency Department with any new, persistent or worsening symptoms, for fever, chills, SOB, dizziness or any other concerning changes that may occur. You must stay home from school treat your symptoms you may return when you are symptom-free. - Post Discharge Activity Work/Back to School Note: Back to Work
[2019-07-06] MEDS ORDERED: OSELTAMIVIR PHOSPHATE 75 MG CAPSULE PO ONE (00:17)
[2019-07-06] MEDS ORDERED: OSELTAMIVIR PHOSPHATE 75 MG CAPSULE ONE (00:20)
[2019-07-06 00:30] VITALS: BP 110/63; PULSE 89; TEMP 100
== END 2019-07-06 00:31 | disposition home or self-care (01) ==
LOC: JER 21:22
DX: J09.X2 Influenza due to identified novel influenza A virus with other respiratory manifestations (principal); H00.14 Chalazion left upper eyelid; N64.4 Mastodynia; F17.210 Nicotine dependence, cigarettes, uncomplicated
CPT/HCPCS: 87804; 99281-25